=== PATIENT | male | born 1935 | race Hispanic/Latino ===

== ENCOUNTER 2016-08-03 14:14 | Inpatient (IN) | payer MEDICARE, OTHER ==
--- NOTE | 2016-08-03 14:46 | CT ---
PROCEDURE: CT HEAD WITHOUT CONTRAST. HISTORY: numbness; h/o TIA COMPARISON: Noncontrast head CT performed 05/05/14 TECHNIQUE: Axial computed tomography images were obtained through the head/brain without intravenous contrast. Radiation dose: Total exam DLP = 860.72 mGy-cm. This CT exam was performed using one or more of the following dose reduction techniques: Automated exposure control, adjustment of the mA and/or kV according to patient size, and/or use of iterative reconstruction technique. FINDINGS: HEMORRHAGE: No intracranial hemorrhage. BRAIN: Diffuse atrophy with prominence of the ventricles and sulci noted. No mass effect or edema. Moderate to severe scattered periventricular and subcortical white matter hypodensities, which are nonspecific, but often seen with chronic microvascular ischemic disease. Please note that MRI with diffusion imaging is more sensitive in the detection of acute ischemic event. VENTRICLES: No hydrocephalus. CALVARIUM: Unremarkable. PARANASAL SINUSES: Unremarkable as visualized. No significant inflammatory changes. MASTOID AIR CELLS: Unremarkable as visualized. No inflammatory changes. OTHER FINDINGS: None. IMPRESSION: Moderate to severe nonspecific white matter changes. Generalized atrophy. Please note that MRI with diffusion imaging is more sensitive in the detection of acute ischemic event. Findings discussed with Dr. Berkowitz on 08/03/16 at 2:42 p.m.
--- NOTE | 2016-08-03 14:50 | ED PDOC ---
HPI:STROKE - Time Time: 02:15 - Historian Historian: Patient (states that he felt numbness on both upper extremties while he was walking about. He reports having some difficulty in getting words out. He then proceeded to walk to the ER to have this checked out. There is no fever or chills. No vision problem.) - Chief Complaint Chief Complaint: Numbness - Onset Onset: Hours NIHSS Stroke Scale - How Severe is the Stroke Level of Consciousness: 0=Alert LOC to Questions: 0=Both comments correct LOC to commands: 0=Obeys both correctly Best Gaze: 0=Normal Visual: 0=No visual loss Facial: 0=Normal Motor Arm - Left: 0=No drift Motor Arm - Right: 0=No drift Motor Leg - Left: 0=No drift Motor Leg - Right: 0=No drift Limb Ataxia: 0=Absent Sensory: 0=Normal Best Language: 0=No aphasia Dysarthia: 0=Normal articulation Extinction & Inattention (Neglect): 0=Normal, no object Score: 0 rTPA Inclusion/Exclusion - Refusal of Treatment Patient Refused Treatment: No - Inclusion Criteria for Altepase Patient is 18 years or Older: Yes The Clinical Diagnosis of Ischemic Stroke That is Causing a Potentially Disabling Neurological Deficit: No Time of Onset is Well Established to be Less Than 270 Minute Before Treatment Would Begin: No Risk/Benefit Discussed With Patient/Family Member Present: Yes - Exclusion Criteria for Altepase Uncontrolled Hypertension at Time of Treatment (Systolic BP above 185 or Diastolic BP above 110 mmHg): No Active Internal Bleeding: No Known Bleeding Diathesis Including but Not Limited to: Platelets Below 100,000/ mm,PTT Above 40 sec After Heparin Use, Current Use of Oral Anitcoagulant With INR Greater Than 1.7 or PT Greater Than 15 secs: No Evidence of an Intracranial Hemorrhage: No Evidence of Major Acute Infarct With Signs Greater Than 1/3 MCA Territory: No Suspicion of Subarachnoid Hemorrhage on Pretreatment Evaluation Even if CT Head Negative For Hemorrhage: No - Warning to TPA With Conditions Following Conditions Weighed Against Anticipated Benefit: No Past Medical History Reviewed: Historical Data, Nursing Documentation, Vital Signs Vital Signs: Last Vital Signs Temp 98.8 F 08/03/16 14:16 Pulse 75 08/03/16 14:16 Resp 16 08/03/16 14:16 BP 133/92 H 08/03/16 14:16 Pulse Ox 98 08/03/16 14:16 - Medical History PMH: CAD, HTN, Hypercholesterolemia, TIA - Surgical History Surgical History: CABG - Family History Family History: States: No Known Family Hx - Living Arrangements Living Arrangements: With Family - Home Medications Home Medications: Ambulatory Orders Medication Instructions Recorded Aspirin [Aspirin EC] 81 mg PO DAILY 04/30/14 Metoprolol Succinate 100 mg PO DAILY 04/30/14 Simvastatin [Zocor] 20 mg PO DAILY 08/03/16 Sulfamethoxazole/Trimethoprim 1 tab PO BID 08/03/16 [Bactrim DS Tab] Tamsulosin [Flomax] 0.4 mg PO DAILY 08/03/16 traMADol [Ultram] 50 mg PO Q6H PRN 08/03/16 - Allergies Allergies/Adverse Reactions: Allergies Allergy/AdvReac Type Severity Reaction Status Date / Time No Known Allergies Allergy Verified 08/03/16 14:16 Review of Systems ROS Statement: Except As Marked, All Systems Reviewed And Found Negative Neurological: Positive for: Numbness (both upper extremities, resolved) Physical Exam - Reviewed Nursing Documentation Reviewed: Yes Vital Signs Reviewed: Yes - Physical Exam Appears: Positive for: Well, Non-toxic, No Acute Distress Head Exam: Positive for: ATRAUMATIC, NORMAL INSPECTION, NORMOCEPHALIC Skin: Positive for: Normal Color, Warm, DRY Eye Exam: Positive for: EOMI, Normal appearance, PERRL ENT: Positive for: Normal ENT Inspection Neck: Positive for: Normal, Painless ROM Cardiovascular/Chest: Positive for: Regular Rate, Rhythm Respiratory: Positive for: CNT, Normal Breath Sounds Gastrointestinal/Abdominal: Positive for: Normal Exam, Bowel Sounds, Soft Back: Positive for: Normal Inspection Extremity: Positive for: Normal ROM Neurologic/Psych: Positive for: Alert, Oriented - Laboratory Results Result Diagrams: 08/03/16 14:36 08/03/16 14:36 - ECG O2 Sat by Pulse Oximetry: 98 Disposition - Clinical Impression Clinical Impression: TIA (transient ischemic attack) - Patient ED Disposition Is Patient to be Admitted: Yes Doctor Will See Patient In The: Hospital - Disposition Disposition: Transfer of Care Disposition Time: 16:15 Condition: GUARDED - Pt Status Changed To: Hospital Disposition Of: Observation - POA Present On Arrival: None
[2016-08-03 14:52] LABS: BASO # 0.1 K/uL (0.0-0.2); BASO % 1.3 % (0.0-2.0); EOS # 0.2 K/uL (0.0-0.7); EOS % 2.7 % (0.0-4.0); HEMATOCRIT 40.3 % (35.0-51.0); LYMPH # 2.2 K/uL (1.0-4.3); LYMPH % 29.7 % (20.0-40.0); MEAN CELL VOLUME 96.5 fl (80.0-94.0); MEAN CORPUSCULAR HEMOGLOBIN 32.7 pg (27.0-31.0); MEAN CORPUSCULAR HGB CONC 33.8 g/dL (33.0-37.0); MEAN PLATELET VOLUME 8.6 fl (7.2-11.7); MONO # 0.6 K/uL (0.0-0.8); MONO % 8.5 % (0.0-10.0); NEUT # 4.3 K/uL (1.8-7.0); NEUT % 57.8 % (50.0-75.0); NRBC % 0.1 % (0.0-0.0); RED CELL DISTRIBUTION WIDTH 13.1 % (11.5-14.5); WHITE BLOOD COUNT 7.5 K/uL (4.8-10.8)
[2016-08-03 14:56] LABS: ALB/GLOB RATIO 1.6 (1.0-2.1); ALKALINE PHOSPHATASE 52 U/L (38-126); ALT/SGPT 37 U/L (21-72); AST/SGOT 35 U/L (17-59); BILIRUBIN,TOTAL 0.5 mg/dl (0.2-1.3); BLOOD UREA NITROGEN 22 mg/dl (9-20); CALCIUM 9.5 mg/dL (8.4-10.2); CARBON DIOXIDE 26 mmol/L (22-30); CHLORIDE 100 mmol/L (98-107); CHOLESTEROL 122 mg/dL (0-199); GFR AFRICAN-AMERICAN > 60; GLUCOSE,RANDOM 109 mg/dL (75-110); POTASSIUM 3.9 MMOL/L (3.6-5.0); SODIUM 138 mmol/l (132-148); TOTAL PROTEIN 7.6 G/DL (6.3-8.2)
[2016-08-03 15:04] LABS: PARTIAL THROMBOPLASTIN TIME 28.8 Seconds (25.6-37.1)
--- NOTE | 2016-08-03 15:05 | RAD ---
HISTORY: acute numbness COMPARISON: Chest x-ray performed 04/30/14 TECHNIQUE: Chest, one view. FINDINGS: LUNGS: Biapical pleural thickening. No focal consolidation. Please note that chest x-ray has limited sensitivity for the detection of pulmonary masses. PLEURA: No significant pleural effusion identified. No definite pneumothorax . CARDIOVASCULAR: Median sternotomy wires with evidence of CABG. Heart size appears within normal limits. OSSEOUS STRUCTURES: Osseous demineralization. Degenerative changes. VISUALIZED UPPER ABDOMEN: Unremarkable. OTHER FINDINGS: None. IMPRESSION: No acute findings. See above.
--- NOTE | 2016-08-03 17:41 | CARD ---
APPROVED REPORT EKG Measurement Heart [id number] <Conclusion> Sinus rhythm with occasional premature ventricular complexes Right bundle branch block Possible Lateral infarct, age undetermined Inferior infarct, age undetermined Abnormal ECG
--- NOTE | 2016-08-03 20:07 | CP.PCM.HP ---
History of Present Illness - History of Present Illness History of Present Illness: CC/HPI: Pt. present to emergency room by walking from home unassisted. Pt. reports that "just wasn't feeling right." Pt. reports felt weak in his right arm and felt like he was slurring his speech when being triaged in the emergency room. Pt. states he takes all of his medications regularly but did not take his Aspirin 81mg this morning. Pt. reports that weakness and lurring of his speech improved shortly after being in the emergency room. Pt. at this time with no complaints and reports he feels better. ROS: Pt. denies headache, lightheadedness, chest pain, dyspnea, fever, chills, nausea, vomiting, dysuria, hematuria, flank pain, or limb pain. PMHx: HTN, HLD, CAD, Arthritis, BPH PSHx: Quadruple Bypass, RT. knee Arthroplasty SMHx: Denies TOB, ETOH, DRUGS FMHx: Not contributory Allergies: NKDA Home Meds: See med list PMD: Dr. Mohr Present on Admission - Present on Admission Any Indicators Present on Admission: No History of DVT/PE: No History of Uncontrolled Diabetes: No Urinary Catheter: No Decubitus Ulcer Present: No Review of Systems - Review of Systems Review of Systems: See HPI Past Patient History - Past Medical History & Family History Past Medical History?: Yes - Past Social History Smoking Status: Never Smoked - CARDIAC Hx Hypercholesterolemia: Yes Hx Hypertension: Yes - NEUROLOGICAL Hx Transient Ischemic Attacks (TIA): Yes - INTEGUMENTARY Other/Comment: Recent biopsy of growth on forehead, no results as of yet. - MUSCULOSKELETAL/RHEUMATOLOGICAL Hx Falls: No - PSYCHIATRIC Hx Substance Use: No - SURGICAL HISTORY Hx Coronary Artery Bypass Graft: Yes - ANESTHESIA Hx Anesthesia: Yes Hx Anesthesia Reactions: No Meds Allergies/Adverse Reactions: Allergies Allergy/AdvReac Type Severity Reaction Status Date / Time No Known Allergies Allergy Verified 08/03/16 14:16 Physical Exam - Constitutional Appears: Non-toxic, No Acute Distress - Head Exam Head Exam: ATRAUMATIC, NORMOCEPHALIC - Eye Exam Eye Exam: Normal appearance, PERRL - Neck Exam Neck exam: Positive for: Full Rom. Negative for: Thyromegaly - Respiratory Exam Respiratory Exam: Clear to Auscultation Bilateral, NORMAL BREATHING PATTERN - Cardiovascular Exam Cardiovascular Exam: REGULAR RHYTHM, +S1, +S2 - GI/Abdominal Exam GI & Abdominal Exam: Soft. absent: Tenderness - Extremities Exam Extremities exam: Positive for: normal capillary refill, pedal pulses present. Negative for: calf tenderness - Neurological Exam Neurological exam: Alert, CN II-XII Intact, Oriented x3 Additional comments: Speech normal, Strength 5/5 bilateral upper and lower extremities - Skin Additional comments: + Port Wine Stain on back and chest present since Results - Vital Signs Recent Vital Signs: Last Vital Signs Temp 98.4 F 08/03/16 18:41 Pulse 60 08/03/16 18:41 Resp 19 08/03/16 18:41 BP 134/71 08/03/16 18:41 Pulse Ox 98 08/03/16 18:41 - Labs Result Diagrams: 08/03/16 14:36 08/03/16 14:36 Assessment & Plan - Assessment and Plan (Free Text) Assessment: 81 y.o. male with hx of CAD and TIA admitted for evaluation for TIA after Code Stroke called in the emergency room TIA/Code Stroke 1- CT Head- No acute changes 2- c/w Statin 3- Start Lovenox 4- Start Plavix 4- c/w Metoprolol 5- Neurology Dr. Forman Consulted- Inpurt appreciated 6- Swallow evaluation 7- PT evaluation 8- Consider Echocardiogram 9- Repeat Lipid Panel and HbA1c in the a.m. UTI- present since admission Taking Bactrim at home for 2 days Pt. currently asymptomatic and afebrile 1- Urinalysis 2- Continue Bactrim Diet 1- Heart Healthy DVT prophylaxis 1- Lovenox 40mg sc
[2016-08-03] MEDS: Tmp-Smz 800 mg-160 mg DS Tab PO SCH (23:00)
[2016-08-04 08:32] LABS: CHOLESTEROL 121 mg/dL (0-199)
[2016-08-04] MEDS ORDERED: Tmp-Smz 800 mg-160 mg DS Tab PO SCH (09:00)
--- NOTE | 2016-08-04 09:51 | CON ---
DATE: 08/04/2016 ATTENDING PHYSICIAN: Nayan Salomon MD. The patient is in room 401, bed 2. REASON FOR CONSULTATION: Transient ischemic attack. CHIEF COMPLAINT: The patient was walked into the hospital with a history of did not feel good with s lurred speech being witnessed in the Emergency Room. From neurological point of view, I was called i n to evaluate him for further management. HISTORY OF PRESENT ILLNESS: The patient is an 81-year-old right-handed male yesterday afte radha, he himself up suddenly felt things are not alright. He was debating with himself to go, not g o to the hospital. Finally decided to come to the hospital because hospital him closer to him. In the Emergency Room, he was found to have inability to bring out the words. This lasted for about an hour. This episode not associating with visual or bulbar dysfunction. No focal weakness. No neck p ain. No history of back pain. No history of fall, no history of involuntary movements, no history o f loss of consciousness. History of a TIA a year ago, been admitted and worked up in the hospital. He also admitting that he did take aspirin yesterday because it ran out. PAST MEDICAL HISTORY: Hypertension, dyslipidemia, TIA, arthritis. PERSONAL HISTORY: Denies smoking or alcohol use. REVIEW OF SYSTEMS: As per H and P. MEDICATIONS: Ultram, Flomax, Bactrim, Zocor, aspirin, and metoprolol. PHYSICAL EXAMINATION: VITAL SIGNS: Blood pressure 99/56, mean arterial pressure of 70, respiratory rate 16, temperature 98 .1, pulse rate is 64. NECK: Supple. No carotid bruit. HEART: Sounds are regular. CHEST: Fair air entry. EXTREMITIES: No edema in legs. NEUROLOGICAL EXAMINATION: MENTAL STATUS EXAMINATION: He is awake, alert, oriented to person, place, and time. Speech is clear . Naming, repetition, fluency, comprehension all within normal. CRANIAL NERVE EXAMINATION: Visual field intact. Pupil reactive to light. Extraocular movements are normal. No nystagmus, no facial sensory deficit, no facial asymmetry. Hearing seems to be intact. MOTOR EXAMINATION: Outstretched hands with eyes closed, no tremor, no weakness, no drift noted. M uscle strength is equal in all 4 extremities. DEEP TENDON REFLEXES: Biceps, brachioradialis, triceps absent, left knee 2+, right knee absent, both ankles are absent. Plantars flexion on the right side; left side was withdrawal response. The righ t leg seems to be an externally rotated to compare with the left side. COORDINATION: Mwplhy-meyy-fslfol test is intact. GAIT: Antalgic gait secondary to the arthritis. He is bowing his knees on both sides. No hemiparet ic gait is noted. CONCLUSION: Upon reviewing his history and neurological examination, the patient has been presenting with possible disorientation, inability to bring out the words, all consistent with possible posteri or cerebral artery ischemic process involving thalamic region. The current examination does not show any lateralizing sign except right leg seems to be externally rotated, that could be from focal path ology. WORKUP: CT of the brain showed diffuse atrophy without any focal ischemic process. LABORATORY DATA: WBC 7.5, hemoglobin 13.6, hematocrit 40.3, platelets 175. PT 12.4, INR 1.1, Aptt 2 8.8. Sodium 138, potassium 3.9, chloride 100, bicarbonate 26, BUN 22, creatinine 1.3, GFR more than 60, glucose 137. Cholesterol 122. LDL 74, triglycerides 184, HDL 27. EKG: Right bundle branch block with lateral wall ischemic process. RECOMMENDATIONS: 1. MRI of the brain to rule out any acute process. 2. Carotid Doppler to rule out stenosis. 3. Echocardiogram to rule out cardioembolic phenomenon. 4. The patient failed with aspirin. I would like to put him back on clopidogrel 75 mg. 5. The patient seems to be low mean arterial pressure as well as bradycardia. I would consider him to be switched to angiotensin receptor franchesca with fenofibrate for triglyceridemia. The patient should get out of the bed and physical therapy should be entertained. If he is stable for the next 12 hour period, the patient can be discharged and should have followup v isit with me as outpatient. Juvencio Forman MD cc: [id number] TT: 08/04/2016 09:50:56 Confirmation # [id number] Dictation # [id number] paul
[2016-08-04] MEDS: Tmp-Smz 800 mg-160 mg DS Tab PO SCH ×2 (10:18→18:34)
[2016-08-04] MEDS: Enoxaparin 40 mg Syringe SC SCH (10:19)
[2016-08-04] MEDS: Metoprolol Succinate 100 mg XL Tab PO SCH (10:19)
--- NOTE | 2016-08-04 11:14 | MRI ---
PROCEDURE: MRI BRAIN WITHOUT CONTRAST HISTORY: stroke COMPARISON: Comparison made with CT scan of the brain 08/03/2016 TECHNIQUE: Multiplanar, multisequence MR images of the brain were obtained without intravenous contrast enhancement. FINDINGS: HEMORRHAGE: No acute parenchymal, subarachnoid or extra-axial hemorrhage. No evidence of hemosiderin deposition seen on gradient echo weighted sequence. DWI: No evidence of an acute or early subacute infarction identified on diffusion imaging. BRAIN PARENCHYMA: Extensive and significant diffuse/ confluent chronic white matter ischemic changes again seen extending peripherally into the deep and subcortical white matter both cerebral hemispheres. Multiple more discrete chronic appearing infarct changes seen scattered throughout the deep and subcortical white matter, braswell radiata basal nuclei and to a lesser degree brainstem. . In addition, there are multiple on more discrete round and elliptical shaped focal areas of CSF signal scattered about the deep and subcortical white matter as well as coronal radiata possibly representing dilated perivascular spaces. Moderate generalized volume loss VENTRICLES: No evidence of obstructive hydrocephalus. CRANIUM: No gross calvarial abnormality seen. ORBITS: Orbits and contents are grossly unremarkable. . PARANASAL SINUSES/MASTOIDS: Minimal mucosal thickening seen within the maxillary antra as well as several ethmoid air cells. Partial opacification multiple left-sided mastoid air cells. VASCULAR SYSTEM: Visualized major vascular flow voids at skull base are patent. OTHER FINDINGS: None. IMPRESSION: No acute intracranial hemorrhage or infarct. A significant and extensive chronic white matter as well as basal nuclei and brainstem ischemic changes. Multiple too numerous to count dilated perivascular spaces are also present. Moderate generalized volume loss.
[2016-08-04 11:15] LABS: THYROID STIMULATING HORMONE 0.88 mIU/ML (0.46-4.68)
--- NOTE | 2016-08-04 13:36 | CARD ---
APPROVED REPORT EXAM: Two-dimensional and M-mode echocardiogram with Doppler and color Doppler. Other Information Quality : GoodRhythm : NSR INDICATION CVA/TIA 2D DIMENSIONS IVSd0.67 (0.7-1.1cm)LVDd4.81 (3.9-5.9cm) LVOT Diameter1.98 (1.8-2.4cm)PWd0.59 (0.7-1.1cm) IVSs0.95 (0.8-1.2cm)LVDs3.30 (2.5-4.0cm) FS (%) 31.4 %PWs0.98 (0.8-1.2cm) LVEF (%)55.0 (>50%) M-Mode DIMENSIONS Left Atrium (MM)4.44 (2.5-4.0cm)IVSd0.88 (0.7-1.1cm) Aortic Root3.24 (2.2-3.7cm)LVDd5.32 (4.0-5.6cm) Aortic Cusp Exc.1.53 (1.5-2.0cm)PWd0.76 (0.7-1.1cm) IVSs0.97 cmFS (%) 35 % LVDs3.47 (2.0-3.8cm)PWs1.03 cm Mitral Valve MV E Uscvfvyw96.2cm/sMV DECEL [id number] A Vcimyotl03.1cm/s MV ZCZ41kmS/A ratio0.9MVA (PHT)4.02cm2 TDI Lateral E' Peak V14.26cm/sMedial E' Peak V8.80cm/sE/Lateral E'4.8 E/Medial E'7.8 Pulmonary Valve PV Peak Luzyjuoo687.0cm/s Tricuspid Valve TR Peak Guzlazrr162ce/sRAP [id number] Peak Gr.21mmHg [id number] LEFT VENTRICLE The left ventricle is normal size. There is normal left ventricular wall thickness. The left ventricular ejection fraction is within the normal range. Hypokinetic basal septum Transmitral Doppler flow pattern is Grade I-abnormal relaxation pattern. RIGHT VENTRICLE The right ventricle is normal size. There is normal right ventricular wall thickness. The right ventricular systolic function is normal. ATRIA The left atrium is mildly dilated. The right atrium size is normal. AORTIC VALVE The aortic valve is mildly thickened. There is trace aortic regurgitation. There is no aortic valvular stenosis. MITRAL VALVE The mitral valve is mildly thickened. There is no mitral valve stenosis. Mitral regurgitation is mild. TRICUSPID VALVE The tricuspid valve is normal in structure There is mild tricuspid regurgitation. PULMONIC VALVE The pulmonary valve is normal in structure and function. There is no pulmonic valvular regurgitation. GREAT VESSELS The aortic root is normal in size. The IVC is normal in size and collapses >50% with inspiration. PERICARDIAL EFFUSION The pericardium appears normal. <Conclusion> The left ventricle is normal size. There is normal left ventricular wall thickness. The left ventricular ejection fraction is within the normal range. Hypokinetic basal septum Transmitral Doppler flow pattern is Grade I-abnormal relaxation pattern. Mitral regurgitation is mild.
--- NOTE | 2016-08-04 14:41 | CP.PCM.PN ---
Subjective - Date & Time of Evaluation Date of Evaluation: 08/04/16 Time of Evaluation: 09:30 - Subjective Subjective: Patient admitted for TIA, in which code stroke called. Neuro consulted with pending imaging (brain MRI, carotid ultrasound, echo,cervical spine MRI). Patient today has no complaints. States ambulating with no difficulty. Speech pressure and slurring has resolved as well as right arm weakness numbing and tingling. Patient denies headache, sob, chest pain, confusion, fever, chills, abdominal pain.Voiding with no difficulty. Patient tolerated PO intake. Son: Obdulio [phone] Objective - Vital Signs/Intake and Output Vital Signs (last 24 hours): Temp Pulse Resp BP Pulse Ox 98.0 F 65 20 112/59 L 98 08/04/16 12:53 08/04/16 12:53 08/04/16 12:53 08/04/16 12:53 08/04/16 12:53 - Medications Medications: Current Medications Atorvastatin Calcium (Lipitor) 10 mg PO DAILY [facility] Last Admin: 08/04/16 10:19 Dose: 10 mg Clopidogrel Bisulfate (Plavix) 75 mg PO DAILY [facility] Last Admin: 08/04/16 10:19 Dose: 75 mg Enoxaparin Sodium (Lovenox) 40 mg SC DAILY [facility] PRN Reason: Protocol Last Admin: 08/04/16 10:19 Dose: 40 mg Losartan Potassium (Cozaar) 25 mg PO DAILY [facility] Metoprolol Succinate (Toprol Xl) 100 mg PO DAILY [facility] Last Admin: 08/04/16 10:19 Dose: 100 mg Tramadol HCl (Ultram) 50 mg PO Q6H PRN PRN Reason: Pain, severe (8-10) Last Admin: 08/03/16 23:03 Dose: 50 mg Trimethoprim/Sulfamethoxazole (Bactrim Ds Tab) 1 tab PO BID [facility] Last Admin: 08/04/16 10:18 Dose: 1 tab - Labs Labs: PT 12.4 Seconds (9.8-13.1) 08/03/16 14:36 INR 1.1 (0.9-1.2) 08/03/16 14:36 APTT 28.8 Seconds (25.6-37.1) 08/03/16 14:36 - Constitutional Appears: Non-toxic, No Acute Distress - Head Exam Head Exam: ATRAUMATIC - Eye Exam Eye Exam: EOMI Pupil Exam: PERRL - ENT Exam ENT Exam: Mucous Membranes Dry - Neck Exam Neck Exam: Full ROM - Respiratory Exam Respiratory Exam: Clear to Ausculation Bilateral, NORMAL BREATHING PATTERN - Cardiovascular Exam Cardiovascular Exam: +S1, +S2 - GI/Abdominal Exam GI & Abdominal Exam: Soft, Normal Bowel Sounds. absent: Tenderness - Extremities Exam Extremities Exam: Full ROM, Normal Capillary Refill, Normal Inspection. absent : Calf Tenderness, Joint Swelling, Pedal Edema, Tenderness - Back Exam Back Exam: absent: CVA tenderness (L), CVA tenderness (R) - Neurological Exam Neurological Exam: Alert, Awake, CN II-XII Intact, Normal Gait, Oriented x3 Additional comments: Speech normal, Strength 5/5 bilateral upper and lower extremities - Skin Skin Exam: Dry, Intact, Normal Color Assessment and Plan - Assessment and Plan (Free Text) Assessment: 81 y.o. male with hx of CAD and TIA admitted for evaluation for TIA after Code Stroke called in the emergency room. TIA/Code Stroke 1- CT Head- No acute changes 2- c/w Statin 3- Start Lovenox 4- Start Plavix 4- c/w Metoprolol 5- Neurology Dr. Forman Consulted- with recommendations of brain MRI (no acute infarct or hemorrhage), cervical spine MRI (pending) echo (normal EF) 6- Swallow evaluation 7- PT evaluation 9- pending Repeat Lipid Panel and HbA1c in the a.m. -possible discharge tomorrow if all labs and PT clearance UTI- present since admission Taking Bactrim at home for 2 days Pt. currently asymptomatic and afebrile 1- Urinalysis 2- Continue Bactrim Diet 1- Heart Healthy DVT prophylaxis 1- Lovenox 40mg sc
[2016-08-04 15:55] VITALS: RESP 18
--- NOTE | 2016-08-04 19:04 | MRI ---
PROCEDURE: MRI cervical spine 2016. HISTORY: Cervical HNP COMPARISON: No prior TECHNIQUE: Multiecho multiplanar sequences were performed through the cervical spine without the use of intravenous contrast. FINDINGS: Current study reveals no acute compression fractures nor retropulsed fragments. Vertebral bodies exhibit relatively normal stature. There is mild straightening of the normal cervical lordosis. There is also very slight posterior subluxation of C4 over C5. Vertebral bodies and facets some otherwise exhibit normal alignment. Multilevel degenerative spondylosis. At the C6-C7 level, there is disc desiccation, disc space narrowing with central and bilateral disc herniation ridge complex contiguous with hypertrophic uncovertebral joints. The facet joints also mildly hypertrophic. There is resultant moderate canal narrowing and cord compression. . Exit foramina appear stenotic bilaterally. At the C5-C6 level, there is mild disc desiccation and posterior disc space narrowing. Small asymmetric disc ridge complex larger on the right than left and contiguous with mildly hypertrophic uncovertebral joints. Facet joints are also mildly hypertrophic. Central canal is minimally narrowed with no significant cord compression. The exit foramina are stenotic bilaterally. At the C4-C5 level, disc desiccation, disc space narrowing with cortical endplate irregularity. . Small broad-based disc bulge ridge complex also results in mild flattening of the ventral surface of the thecal sac and what appears represent some very minimal flattening of the ventral surface of the cord. Central canal is marginal to minimally narrowed. Uncovertebral facets are hypertrophic with bilateral foraminal stenosis. At the C3-C4 level, there is at mild age related disc desiccation. Disc space height maintained. Minimal central and bilateral disc bulge associate with a tiny annular fissure. The disc at minimally indents the ventral surface of the thecal sac and cord. Central canal appears marginal to adequate. Left facet is quite hypertrophic. Right facet is slightly overgrown. Minimal degenerative squaring of the uncovertebral joints. Left exit foramen is stenotic. Right exit foramen is adequate. No definitive intrinsic signal changes seen within the visualized spinal cord. Cervicomedullary junction unremarkable Impression: Multilevel degenerative spondylosis most notably affecting C6-C7 level where moderate size central and bilateral disc herniation results in moderate canal canal narrowing and cord compression. See above discussion for additional findings and details.
[2016-08-04 23:06] LABS: RBC URINE 2 /hpf (0-3); URINE BILIRUBIN NEGATIVE (NEGATIVE); URINE BLOOD NEGATIVE (NEGATIVE); URINE COLOR YELLOW (YELLOW); URINE GLUCOSE (UA) NEG (Normal); URINE KETONE NEGATIVE (NEGATIVE); URINE LEUKOCYTE ESTERASE NEG Leu/uL (Negative); URINE PROTEIN NEGATIVE (NEGATIVE); URINE UROBILINOGEN 0.2-1.0 mg/dL (0.2-1.0); WBC URINE < 1 /hpf (0-5)
[2016-08-05 00:03] VITALS: O2SAT 98
[2016-08-05 00:21] LABS: FOLATE > 20.0 ng/mL
[2016-08-05 08:45] VITALS: BP 109/63; TEMP 97.7
[2016-08-05] MEDS: Tmp-Smz 800 mg-160 mg DS Tab PO SCH (08:49)
[2016-08-05] MEDS: Enoxaparin 40 mg Syringe SC SCH ×2 (08:50→09:24)
[2016-08-05] MEDS: Metoprolol Succinate 100 mg XL Tab PO SCH (08:50)
[2016-08-05 08:52] VITALS: PULSE 64
--- NOTE | 2016-08-05 09:58 | CP.PCM.DIS ---
Provider - Provider Date of Admission: 08/03/16 16:26 Attending physician: Nayan Gallegos MD Primary care physician: Consults: Neuro: Dr. Forman Time Spent in preparation of Discharge (in minutes): 45 Diagnosis - Discharge Diagnosis (1) HTN (hypertension) Status: Acute (2) TIA (transient ischemic attack) Status: Acute (3) Radiculopathy affecting upper extremity Status: Acute Hospital Course - Lab Results Lab Results: Most Recent Lab Values WBC 7.5 K/uL (4.8-10.8) 08/03/16 14:36 RBC 4.17 Mil/uL (4.40-5.90) L 08/03/16 14:36 Hgb 13.6 g/dL (12.0-18.0) 08/03/16 14:36 Hct 40.3 % (35.0-51.0) 08/03/16 14:36 MCV 96.5 fl (80.0-94.0) H 08/03/16 14:36 MCH 32.7 pg (27.0-31.0) H 08/03/16 14:36 MCHC 33.8 g/dL (33.0-37.0) 08/03/16 14:36 RDW 13.1 % (11.5-14.5) 08/03/16 14:36 Plt Count 175 K/uL (130-400) 08/03/16 14:36 MPV 8.6 fl (7.2-11.7) 08/03/16 14:36 Neut % (Auto) 57.8 % (50.0-75.0) 08/03/16 14:36 Lymph % (Auto) 29.7 % (20.0-40.0) 08/03/16 14:36 [place] % (Auto) 8.5 % (0.0-10.0) 08/03/16 14:36 Eos % (Auto) 2.7 % (0.0-4.0) 08/03/16 14:36 Baso % (Auto) 1.3 % (0.0-2.0) 08/03/16 14:36 Neut # 4.3 K/uL (1.8-7.0) 08/03/16 14:36 Lymph # 2.2 K/uL (1.0-4.3) 08/03/16 14:36 [place] # 0.6 K/uL (0.0-0.8) 08/03/16 14:36 Eos # 0.2 K/uL (0.0-0.7) 08/03/16 14:36 Baso # 0.1 K/uL (0.0-0.2) 08/03/16 14:36 ESR 14 mm/hr (0-20) 08/04/16 10:00 PT 12.4 Seconds (9.8-13.1) 08/03/16 14:36 INR 1.1 (0.9-1.2) 08/03/16 14:36 APTT 28.8 Seconds (25.6-37.1) 08/03/16 14:36 Sodium 138 mmol/l (132-148) 08/03/16 14:36 Potassium 3.9 MMOL/L (3.6-5.0) 08/03/16 14:36 Chloride 100 mmol/L (98-107) 08/03/16 14:36 Carbon Dioxide 26 mmol/L (22-30) 08/03/16 14:36 Anion Gap 16 (10-20) 08/03/16 14:36 BUN 22 mg/dl (9-20) H 08/03/16 14:36 Creatinine 1.3 mg/dL (0.8-1.5) 08/03/16 14:36 Est GFR ( Amer) > 60 08/03/16 14:36 Est GFR (Non-Af Amer) 53 08/03/16 14:36 POC Glucose (mg/dL) 137 mg/dL (65-110) H 08/03/16 14:35 Random Glucose 109 mg/dL (75-110) 08/03/16 14:36 Hemoglobin A1c 5.6 % (4.2-6.5) 08/03/16 14:36 Calcium 9.5 mg/dL (8.4-10.2) 08/03/16 14:36 Total Bilirubin 0.5 mg/dl (0.2-1.3) 08/03/16 14:36 AST 35 U/L (17-59) 08/03/16 14:36 ALT 37 U/L (21-72) 08/03/16 14:36 Alkaline Phosphatase 52 U/L (38-126) 08/03/16 14:36 Troponin I < 0.0120 ng/mL (0.00-0.120) 08/03/16 14:36 C-React Prot High Sens < 0.10 mg/L (1.00-3.00) L 08/04/16 10:00 Total Protein 7.6 G/DL (6.3-8.2) 08/03/16 14:36 Albumin 4.7 g/dL (3.5-5.0) 08/03/16 14:36 Globulin 2.9 gm/dL (2.2-3.9) 08/03/16 14:36 Albumin/Globulin Ratio 1.6 (1.0-2.1) 08/03/16 14:36 Triglycerides 63 mg/DL (0-149) D 08/04/16 06:00 Cholesterol 121 mg/dL (0-199) 08/04/16 06:00 LDL Cholesterol Direct 81 mg/dL (0-129) 08/04/16 06:00 HDL Cholesterol 29 MG/DL (30-70) L 08/04/16 06:00 Vitamin B12 267 pg/mL (239-931) 08/04/16 10:00 Folate > 20.0 ng/mL 08/04/16 10:00 TSH 3rd Generation 0.88 mIU/ML (0.46-4.68) 08/04/16 10:00 Urine Color Yellow (YELLOW) 08/04/16 22:59 Urine Clarity Clear (Clear) 08/04/16 22:59 Urine pH 6.0 (5.0-8.0) 08/04/16 22:59 Ur Specific [place] 1.010 (1.003-1.030) 08/04/16 22:59 Urine Protein Negative mg/dL (NEGATIVE) 08/04/16 22:59 Urine Glucose (UA) Neg mg/dL (Normal) 08/04/16 22:59 Urine Ketones Negative mg/dL (NEGATIVE) 08/04/16 22:59 Urine Blood Negative (NEGATIVE) 08/04/16 22:59 Urine Nitrate Negative (NEGATIVE) 08/04/16 22:59 Urine Bilirubin Negative (NEGATIVE) 08/04/16 22:59 Urine Urobilinogen 0.2-1.0 mg/dL (0.2-1.0) 08/04/16 22:59 Ur Leukocyte Esterase Neg Rama/uL (Negative) 08/04/16 22:59 Urine RBC (Auto) 2 /hpf (0-3) 08/04/16 22:59 Urine Microscopic WBC < 1 /hpf (0-5) 08/04/16 22:59 Blood Type O POSITIVE 08/03/16 14:36 Antibody Screen Negative 08/03/16 14:36 BBK History Checked No verified bt 08/03/16 14:36 - Hospital Course Hospital Course: Pt. present to emergency room by walking from home unassisted. Pt. reports that "just wasn't feeling right." Pt. reports felt weak in his right arm and felt like he was slurring his speech when being triaged in the emergency room. Pt. states he takes all of his medications regularly but did not take his Aspirin 81mg this morning. Pt. reports that weakness and slurring of his speech improved shortly after being in the emergency room. Patient's symptoms resolved in ER. in ED, CT Head- No acute changes, c/w Statin,Lovenox, Metoprolol, PT eval. Patient passed swallow eval. Dr. Forman consulted with recommendations of brain MRI ( negative for acute findings), echo was normal. Cervical spine showed degenerative changes. Patient was started on Plavix and Cozaar by angie with clearance for discharge. Patient on discharge had no acute complaints. Stated he wanted to go home. No complaints of headache, confusion, extremity weakness, slurring or pressured speech. Patient stable on discharge. Home medications on discharge: Cozaar 50 mg daily Plavix 75 mg daily Metoprolol Succinate 100 mg daily \\ Lipitor 10 mg Discharge Exam - Head Exam Head Exam: ATRAUMATIC - Eye Exam Eye Exam: EOMI Pupil Exam: PERRL - ENT Exam ENT Exam: Mucous Membranes Moist - Neck Exam Neck exam: Full Rom - Respiratory Exam Respiratory Exam: Clear to PA & Lateral, NORMAL BREATHING PATTERN, UNREMARKABLE - Cardiovascular Exam Cardiovascular Exam: REGULAR RHYTHM, +S1, +S2 - Extremities Exam Extremities exam: full ROM, normal inspection, pedal pulses present - Back Exam Back exam: absent: CVA tenderness (L), CVA tenderness (R) - Neurological Exam Neurological exam: Alert, CN II-XII Intact, Normal Gait, Oriented x3 - Psychiatric Exam Psychiatric exam: Normal Affect, Normal Mood - Skin Skin Exam: Dry, Intact, Normal Color, Warm Discharge Plan - Discharge Medications Prescriptions: Clopidogrel [Plavix] 75 mg PO DAILY #30 tab Losartan [Cozaar] 25 mg PO DAILY #30 tab - Follow Up Plan Condition: GUARDED Disposition: HOME/ ROUTINE Instructions: Transient Ischemic Attack (DC) Additional Instructions: Patient to follow up with PMD in 1 week Patient to take medication as directed Discontinue ASA Follow up with neurology in 1-2 weeks Return to ED if symptoms worsen or regress Referrals: Juvencio Forman MD [Medical Doctor] - Nayan Gallegos MD [Family Provider] -
--- NOTE | 2016-08-05 15:33 | US ---
PROCEDURE: Duplex ultrasound of the carotid and vertebral arteries. HISTORY: assess stenosis COMPARISON: None available. TECHNIQUE: Grayscale and duplex Doppler evaluation of the cervical carotid and vertebral arteries were performed. The common carotid, carotid bifurcations and cervical ICA and proximal ECA were evaluated. The vertebral arteries were evaluated for gross patency and direction. FINDINGS: RIGHT CAROTID ARTERIES: There is minor intimal thickening seen in the common carotid artery with mild plaque in the carotid bifurcation extending into right internal carotid artery. Maximal right ICA velocity = 102.3 cm/S. Maximal right CCA velocity = 122.0 cm/S ICA/CCA ratio = 1.0 LEFT CAROTID ARTERIES: Mild atherosclerotic plaque seen within the proximal and distal left common carotid artery extending into the bifurcation and proximal left internal carotid artery. Maximal left ICA velocity = 92.5 cm/S Maximal left CCA velocity = 162.2 cm/S ICA/CCA ratio = 0.8 VERTEBRAL ARTERIES: Right Vertebral Artery: Patent. Antegrade flow. Left Vertebral Artery: Patent. Antegrade flow. OTHER FINDINGS: None. IMPRESSION: Mild atherosclerotic plaque changes are seen within both carotid circulations as described. . Based on peak velocity measurements in the internal carotid arteries, findings suggest between 1 and 39 % diameter stenosis bilaterally.
== END 2016-08-05 12:45 | disposition home or self-care (01) | DRG 69 ==
LOC: H.ER 14:14 → OBSVTOIN 16:26 → H.ERHOLD 16:26 → H.TEL 18:14
PROVIDERS: ADMIT Family Medicine; ATTEND Family Medicine
DX: G45.9 Transient cerebral ischemic attack, unspecified (principal); N39.0 Urinary tract infection, site not specified; Z95.1 Presence of aortocoronary bypass graft; I10 Essential (primary) hypertension; E78.5 Hyperlipidemia, unspecified; I25.10 Atherosclerotic heart disease of native coronary artery without angina pectoris; E78.00 Pure hypercholesterolemia, unspecified; M54.10 Radiculopathy, site unspecified; N40.0 Benign prostatic hyperplasia without lower urinary tract symptoms; M19.90 Unspecified osteoarthritis, unspecified site; Z79.02 Long term (current) use of antithrombotics/antiplatelets; Z79.82 Long term (current) use of aspirin; Z86.73 Personal history of transient ischemic attack (TIA), and cerebral infarction without residual deficits

== ENCOUNTER 2017-01-22 13:43 | Inpatient (IN) | payer MEDICARE, OTHER ==
[2017-01-22 13:44] VITALS: BMI 22.8
--- NOTE | 2017-01-22 14:30 | ED PDOC ---
HPI: Abdomen Time Seen by Provider: 01/22/17 14:14 Chief Complaint (Nursing): GI Problem Chief Complaint (Provider): nausea History Per: Patient History/Exam Limitations: no limitations Onset/Duration Of Symptoms: Hrs (4), Gradual Outside of [place] travel?: No Current Symptoms Are (Timing): Still Present Context: Food Location Of Pain/Discomfort: Diffuse Quality Of Discomfort: Cramping Associated Symptoms: Nausea, Other (++ BMs). denies: Vomiting, Diarrhea Alleviating Factors: None Last Bowel Movement: Today Additional Complaint(s): 81yo male arrives c.o nausea and mild abdominal discomfort, c/o "not feeling right" which started while attending a this morning. Also notes feeling a chill, fatigued and mildly dizzy. Symptoms similar to prior when diagnosed with colitis requiring hospitalization. Denies melena, BRBPR or hemetemesis. States scheduled for colonoscopy this saturday by Dr Ravi. Started a new medication from neuro Dr Forman this morning Mohinder, for early dementia. Past Medical History Reviewed: Historical Data, Nursing Documentation, Vital Signs Vital Signs: Last Vital Signs Temp 98.1 F 01/22/17 20:57 Pulse 64 01/22/17 20:57 Resp 18 01/22/17 20:57 BP 104/55 L 01/22/17 20:57 Pulse Ox 97 01/22/17 21:01 - Medical History PMH: CAD, HTN, Hypercholesterolemia, TIA Denies: HIV, Chronic Kidney Disease - Surgical History Surgical History: CABG (X4) - Family History Family History: States: Unknown Family Hx - Living Arrangements Living Arrangements: With Family - Social History Current smoker - smoking cessation education provided: No - Home Medications Home Medications: Ambulatory Orders Medication Instructions Recorded Metoprolol Succinate 100 mg PO DAILY 04/30/14 Tamsulosin [Flomax] 0.4 mg PO DAILY 08/03/16 traMADol [Ultram] 50 mg PO Q8H PRN 08/03/16 Atorvastatin [Lipitor] 10 mg PO DAILY tab 08/05/16 Clopidogrel [Plavix] 75 mg PO DAILY #30 tab 08/05/16 Losartan [Cozaar] 25 mg PO DAILY #30 tab 08/05/16 Ciprofloxacin [Cipro] 500 mg PO Q12H 12/13/16 Cyanocobalamin [Vitamin B12 1000 1,000 mcg PO DAILY 12/13/16 mcg Tab] Lactobacillus Combination No.8 1 cap PO DAILY 12/13/16 [Adult Probiotic] metroNIDAZOLE [Flagyl] 500 mg PO Q8H 12/13/16 - Allergies Allergies/Adverse Reactions: Allergies Allergy/AdvReac Type Severity Reaction Status Date / Time No Known Allergies Allergy Verified 12/13/16 12:21 Review of Systems ROS Statement: Except As Marked, All Systems Reviewed And Found Negative Constitutional: Positive for: Chills, Weakness, Malaise Eyes: Negative for: Pain ENT: Negative for: Ear Pain, Nose Discharge Cardiovascular: Negative for: Chest Pain, Orthopnea Respiratory: Negative for: Cough, Shortness of Breath Gastrointestinal: Positive for: Nausea, Abdominal Pain. Negative for: Vomiting , Diarrhea, Constipation, Melena, Hematochezia, Hematemesis, Rectal Pain Genitourinary Male: Negative for: Dysuria Musculoskeletal: Negative for: Neck Pain, Shoulder Pain, Leg Pain Skin: Negative for: Rash, Lesions Neurological: Negative for: Weakness, Numbness, Headache, Dizziness Psych: Negative for: Anxiety Physical Exam - Reviewed Nursing Documentation Reviewed: Yes Vital Signs Reviewed: Yes - Physical Exam Appears: Positive for: Well, Non-toxic, No Acute Distress Head Exam: Positive for: ATRAUMATIC, NORMAL INSPECTION, NORMOCEPHALIC Skin: Positive for: Normal Color, Warm, DRY Eye Exam: Positive for: EOMI, Normal appearance, PERRL ENT: Positive for: Normal ENT Inspection Neck: Positive for: Normal, Painless ROM Cardiovascular/Chest: Positive for: Regular Rate, Rhythm Respiratory: Positive for: CNT, Normal Breath Sounds Gastrointestinal/Abdominal: Positive for: Bowel Sounds, Soft. Negative for: Tenderness, Guarding, Rebound Back: Positive for: Normal Inspection Extremity: Positive for: Normal ROM. Negative for: Deformity, Swelling Neurologic/Psych: Positive for: Alert, Oriented. Negative for: Motor/Sensory Deficits - Laboratory Results Result Diagrams: 01/22/17 15:20 01/22/17 15:20 - ECG O2 Sat by Pulse Oximetry: 97 Medical Decision Making Medical Decision Making: workup for abd pain initiated labs, CT, IVF, antiemetic ordered FINDINGS: Lower thorax: Heart size is normal. There are coronary artery calcifications. There is a hiatal hernia. ABDOMEN: Liver: There is fatty infiltration of the liver. Gallbladder and bile ducts: unremarkable Pancreas: Pancreas is mildly atrophic. Spleen: unremarkable Adrenals: unremarkable Kidneys and ureters: There are multiple left renal cysts. There are low- attenuation right renal lesions too small to characterize.There is no pelvocaliectasis or ureterectasis. Stomach and bowel: Stomach is partially distended. There is a small duodenal diverticulum. Rotation is normal. There is no small bowel obstruction. Appendix is absent. Terminal ileum is unremarkable. The colon is interposed between the liver and the abdominal wall. There is moderate stool in the colon. There is extensive sigmoid diverticulosis. There has been slight decrease in PRINCESS REINOSO | Final Radiology Report CONFIDENTIALITY STATEMENT This report is intended only for use by the referring physician, and only in accordance with law. If you received this in error, call [phone]. Page 2 of 2 sigmoid wall thickening and enhancement compared to the prior study. There continues to be wall thickening and enhancement of the sigmoid and rectum. Appendix: See stomach and bowel PELVIS: Bladder: unremarkable Reproductive: The prostate is enlarged.Seminal vesicles have the expected configuration. ABDOMEN and PELVIS: Intraperitoneal space: There is trace fluid in the left lower quadrant.There is no free air. Bones/joints: There are postsurgical changes of median sternotomy Bony structures are osteopenic with degenerative change. Soft tissues: There is a moderately large left inguinal hernia containing fat. There is a small fat containing umbilical hernia. There are surgical clips in the left inguinal region. Vasculature: There are vascular calcifications. Lymph nodes: There is no pathologic adenopathy. IMPRESSION: Extensive sigmoid diverticulosis, continued sigmoid and rectal wall thickening and inflammation suggesting colitis/proctitis, no abscess or free air; fatty liver, no acute solid visceral abnormality D/w Dr Enriquez covering GI Dr Ravi, given elev WBC, recurrence of colitis, age will require inpatient eval and possible scope here. Disposition - Disposition Forms: [employer] (Japanese)
[2017-01-22 15:35] LABS: BASO # 0.1 K/uL (0.0-0.2); BASO % 0.5 % (0.0-2.0); EOS % 0.3 % (0.0-4.0); HEMATOCRIT 39.3 % (35.0-51.0); LYMPH % 7.8 % (20.0-40.0); MEAN CELL VOLUME 98.8 fl (80.0-94.0); MEAN CORPUSCULAR HEMOGLOBIN 32.4 pg (27.0-31.0); MEAN CORPUSCULAR HGB CONC 32.8 g/dL (33.0-37.0); MEAN PLATELET VOLUME 8.5 fl (7.2-11.7); MONO # 0.5 K/uL (0.0-0.8); MONO % 3.8 % (0.0-10.0); NEUT # 10.7 K/uL (1.8-7.0); NEUT % 87.6 % (50.0-75.0); PLATELET COUNT 166 K/uL (130-400); RED CELL DISTRIBUTION WIDTH 14.1 % (11.5-14.5); WHITE BLOOD COUNT 12.3 K/uL (4.8-10.8)
[2017-01-22 16:02] LABS: ALB/GLOB RATIO 1.4 (1.0-2.1); ALKALINE PHOSPHATASE 52 U/L (38-126); ALT/SGPT 35 U/L (21-72); AST/SGOT 27 U/L (17-59); BILIRUBIN,TOTAL 0.6 mg/dl (0.2-1.3); BLOOD UREA NITROGEN 19 mg/dl (9-20); CARBON DIOXIDE 28 mmol/L (22-30); CHLORIDE 103 mmol/L (98-107); GFR AFRICAN-AMERICAN > 60; GLUCOSE,RANDOM 108 mg/dL (75-110); LIPASE 804 U/L (23-300); POTASSIUM 3.7 MMOL/L (3.6-5.0); SODIUM 139 mmol/l (132-148); TOTAL PROTEIN 7.1 G/DL (6.3-8.2)
[2017-01-22 16:07] LABS: NEUTROPHIL 86 % (42-75); TOTAL CELLS COUNTED 100
[2017-01-22 16:15] LABS: VENOUS BLOOD GAS BASE EXCESS 1.9 mmol/L (0.0-2.0); VENOUS BLOOD GAS PCO2 50 mmHg (40-60); VENOUS BLOOD PH 7.36 (7.32-7.43)
[2017-01-22] MEDS ORDERED: Iohexol 240 (50 ml) PO ONE (16:32)
[2017-01-22 16:51] LABS: RBC URINE 2 /hpf (0-3); URINE BACTERIA RARE (<OCC); URINE BILIRUBIN NEGATIVE (NEGATIVE); URINE BLOOD NEGATIVE (NEGATIVE); URINE COLOR YELLOW (YELLOW); URINE GLUCOSE (UA) NEG (Normal); URINE KETONE TRACE mg/dL (NEGATIVE); URINE LEUKOCYTE ESTERASE NEG Leu/uL (Negative); URINE PROTEIN NEGATIVE (NEGATIVE); URINE UROBILINOGEN 0.2-1.0 mg/dL (0.2-1.0); WBC URINE 2 /hpf (0-5)
[2017-01-22 16:58] LABS: PARTIAL THROMBOPLASTIN TIME 26.1 Seconds (25.6-37.1)
--- NOTE | 2017-01-22 17:26 | RAD ---
HISTORY: chest pain/ r/o infiltrate COMPARISON: 08/03/2016 TECHNIQUE: Chest PA and lateral FINDINGS: LUNGS: No active pulmonary disease. PLEURA: No significant pleural effusion identified. No pneumothorax apparent. CARDIOVASCULAR: No radiographic findings to suggest acute or significant cardiovascular disease. Incidental Finding(s): Postoperative changes related to sternotomy. OSSEOUS STRUCTURES: No significant abnormalities. VISUALIZED UPPER ABDOMEN: Normal. OTHER FINDINGS: None. IMPRESSION: No active disease. No significant interval change compared to the prior examination(s). Concordant results with the preliminary interpretation rendered by the emergency department physician procedure.
[2017-01-22] MEDS ORDERED: Iohexol 300 100 ML IJ ONE (19:13)
--- NOTE | 2017-01-22 20:50 | CT ---
EXAM: CT Abdomen and Pelvis With Intravenous Contrast EXAM DATE/TIME: 01/22/2017 4:32 PM CLINICAL HISTORY: 81 years old, male; Pain; Abdominal pain; Generalized; Prior surgery; Surgery date: 6+ months; Surgery type: Appendectomy; Additional info: Abdominal pain, HX colitis TECHNIQUE: Axial computed tomography images of the abdomen and pelvis with intravenous contrast. All CT scans at this facility use one or more dose reduction techniques, viz.: automated exposure control; ma/kV adjustment per patient size (including targeted exams where dose is matched to indication; i.e. head); or iterative reconstruction technique. Coronal and sagittal reformatted images were created and reviewed. CONTRAST: 95 mL of [id number] administered intravenously. COMPARISON: CT - ABD PELVIS PO IV CONTRAST 2016-12-13 15:03 FINDINGS: Lower thorax: Heart size is normal. There are coronary artery calcifications. There is a hiatal hernia. ABDOMEN: Liver: There is fatty infiltration of the liver. Gallbladder and bile ducts: unremarkable Pancreas: Pancreas is mildly atrophic. Spleen: unremarkable Adrenals: unremarkable Kidneys and ureters: There are multiple left renal cysts. There are low-attenuation right renal lesions too small to characterize.There is no pelvocaliectasis or ureterectasis. Stomach and bowel: Stomach is partially distended. There is a small duodenal diverticulum. Rotation is normal. There is no small bowel obstruction. Appendix is absent. Terminal ileum is unremarkable. The colon is interposed between the liver and the abdominal wall. There is moderate stool in the colon. There is extensive sigmoid diverticulosis. There has been slight decrease in sigmoid wall thickening and enhancement compared to the prior study. There continues to be wall thickening and enhancement of the sigmoid and rectum. Appendix: See stomach and bowel PELVIS: Bladder: unremarkable Reproductive: The prostate is enlarged.Seminal vesicles have the expected configuration. ABDOMEN and PELVIS: Intraperitoneal space: There is trace fluid in the left lower quadrant.There is no free air. Bones/joints: There are postsurgical changes of median sternotomy Bony structures are osteopenic with degenerative change. Soft tissues: There is a moderately large left inguinal hernia containing fat. There is a small fat containing umbilical hernia. There are surgical clips in the left inguinal region. Vasculature: There are vascular calcifications. Lymph nodes: There is no pathologic adenopathy. IMPRESSION: Extensive sigmoid diverticulosis, continued sigmoid and rectal wall thickening and inflammation suggesting colitis/proctitis, no abscess or free air; fatty liver, no acute solid visceral abnormality
[2017-01-22] MEDS ORDERED: metroNIDAZOLE 500mg/100ml NS 100 ML IVPB STA (21:13)
[2017-01-22] MEDS ORDERED: Ciprofloxacin 400mg/200ml D5W 400 MG/200 ML BAG IVPB STA (21:13)
[2017-01-22] MEDS ORDERED: Ciprofloxacin 400mg/200ml D5W 400 MG/200 ML BAG IVPB ONE (21:22)
[2017-01-22] MEDS ORDERED: Lactated Ringer's 1,000 ML IV SCH (22:00)
--- NOTE | 2017-01-22 22:24 | CP.PCM.HP ---
<Estrella Diaz - Last Filed: 01/23/17 05:21> History of Present Illness - History of Present Illness History of Present Illness: 81 y/o M with PMHx of CAD/[place] 10 years ago, s/p CABG, BPH, TIA, presented with complaints of 'not feeling right' after attending a earlier today. After he got home, he went to the bathroom, felt clammy, with chills and had multiple bowel movements that were non-bloody, but not diarrhea. Unable to quantify, but more than 3 BMs. He was able to tolerate lunch, but did have nausea, without vomiting. He had mild headache earlier that has resolved. He started taking a new medication, for his memory loss prescribed by Dr. Forman. Unsure of name of medication. Only took first dose today. He is currently lying in stretcher in ED without complaints of pain, nausea. He has no appetite. He has not had BM since arriving to the ED. He was scheduled to have colonoscopy on 01/25/2017. His certified physical therapist assistant is Dr. Ravi. ROS: +weight loss, unintentional about 7lbs in last month, denies fevers, chills , chest pain, dyspnea, abdominal pain, pedal edema He was treated in Dec for similar symptoms PMD: Dr. Angulo and Dr. Gallegos PMHx: [place] 10 yo ago, s/p Quadruple Bypass heart surgery, BPH, TIA Allergies: NKDA Surgical Hx: CABG, Right knee surgery, appendectomy Social: never smoker, no etoh, no drugs Meds: Atorvastatin 10 mg, Vit B12 1000 mcg, Losartan 25 mg, Metoprolol Succ 100 mg, tamsulosin 0.4 mg, tramadol 50 mg Inpatient Care Manager Rn: Dr. Lara Neurologist: Dr. Forman Marketing Account Manager: Dr. 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 - MUSCULOSKELETAL/RHEUMATOLOGICAL Hx Falls: No - GASTROINTESTINAL Hx Gastrointestinal Disorders: Yes Other/Comment: Ulcerative Colitis - GENITOURINARY/GYNECOLOGICAL Hx Genitourinary Disorders: Yes Hx Prostate Problems: Yes - PSYCHIATRIC Hx Psychophysiologic Disorder: No Hx Substance Use: No - SURGICAL HISTORY Hx Coronary Artery Bypass Graft: Yes (X4) - ANESTHESIA Hx Anesthesia: Yes Hx Anesthesia Reactions: No Meds Allergies/Adverse Reactions: Allergies Allergy/AdvReac Type Severity Reaction Status Date / Time No Known Allergies Allergy Verified 01/22/17 21:25 Physical Exam - Constitutional Appears: Non-toxic, No Acute Distress - Head Exam Head Exam: ATRAUMATIC, NORMAL INSPECTION, NORMOCEPHALIC - Eye Exam Eye Exam: EOMI, Normal appearance, PERRL - ENT Exam ENT Exam: Mucous Membranes Moist, Normal Exam - Respiratory Exam Respiratory Exam: Clear to Auscultation Bilateral, NORMAL BREATHING PATTERN. absent: Prolonged Expiratory Phase, Rales, Rhonchi, Wheezes - Cardiovascular Exam Cardiovascular Exam: REGULAR RHYTHM, +S1, +S2 - GI/Abdominal Exam GI & Abdominal Exam: Normal Bowel Sounds, Soft. absent: Distended, Guarding, Tenderness - Rectal Exam Rectal Exam: Deferred - Extremities Exam Extremities exam: Negative for: pedal edema Results - Vital Signs Recent Vital Signs: Last Vital Signs Temp 98.1 F 01/22/17 22:13 Pulse 64 01/22/17 22:13 Resp 18 01/22/17 22:13 BP 104/55 L 01/22/17 22:13 Pulse Ox 97 01/22/17 21:15 - Labs Result Diagrams: 01/22/17 15:20 01/22/17 15:20 Labs: Laboratory Results - last 24 hr 01/22/17 01/22/17 01/22/17 14:59 15:20 15:20 WBC 12.3 H RBC 3.98 L Hgb 12.9 Hct 39.3 MCV 98.8 H D MCH 32.4 H MCHC 32.8 L RDW 14.1 Plt Count 166 MPV 8.5 Neut % (Auto) 87.6 H Lymph % (Auto) 7.8 L [place] % (Auto) 3.8 Eos % (Auto) 0.3 Baso % (Auto) 0.5 Neut # 10.7 H Lymph # 1.0 W[place]er # 0.5 Eos # 0.0 Baso # 0.1 Neutrophils % (Manual) 86 H Band Neutrophils % 1 Lymphocytes % (Manual) 9 L Monocytes % (Manual) 4 Platelet Estimate Normal RBC Morphology Normal PT INR APTT pO2 VBG pH VBG pCO2 VBG HCO3 VBG Total CO2 VBG O2 Sat (Calc) VBG Base Excess VBG Potassium Glucose Lactate FiO2 Sodium 139 Potassium 3.7 Chloride 103 Carbon Dioxide 28 Anion Gap 12 BUN 19 Creatinine 0.8 Est GFR ( Amer) > 60 Est GFR (Non-Af Amer) > 60 POC Glucose (mg/dL) 113 H Random Glucose 108 Calcium 9.0 Total Bilirubin 0.6 AST 27 ALT 35 Alkaline Phosphatase 52 Troponin I < 0.0120 Total Protein 7.1 Albumin 4.1 Globulin 3.0 Albumin/Globulin Ratio 1.4 Lipase 804 H Venous Blood Potassium Urine Color Urine Clarity Urine pH Ur Specific [place] Urine Protein Urine Glucose (UA) Urine Ketones Urine Blood Urine Nitrate Urine Bilirubin Urine Urobilinogen Ur Leukocyte Esterase Urine RBC (Auto) Urine Microscopic WBC Ur Squamous Epith Cells Urine Bacteria 01/22/17 01/22/17 01/22/17 15:25 16:00 16:00 WBC RBC Hgb Hct MCV MCH MCHC RDW Plt Count MPV Neut % (Auto) Lymph % (Auto) [place]er % (Auto) Eos % (Auto) Baso % (Auto) Neut # Lymph # W[place] # Eos # Baso # Neutrophils % (Manual) Band Neutrophils % Lymphocytes % (Manual) Monocytes % (Manual) Platelet Estimate RBC Morphology PT 12.8 INR 1.2 APTT 26.1 pO2 29 L VBG pH 7.36 VBG pCO2 50 VBG HCO3 25.2 VBG Total CO2 29.7 H VBG O2 Sat (Calc) 57.3 VBG Base Excess 1.9 VBG Potassium 3.8 Glucose 117 H Lactate 1.3 FiO2 21.0 Sodium 135.0 Potassium Chloride 104.0 Carbon Dioxide Anion Gap BUN Creatinine Est GFR ( Amer) Est GFR (Non-Af Amer) POC Glucose (mg/dL) Random Glucose Calcium Total Bilirubin AST ALT Alkaline Phosphatase Troponin I Total Protein Albumin Globulin Albumin/Globulin Ratio Lipase Venous Blood Potassium 3.8 Urine Color Yellow Urine Clarity Slighty-cloudy Urine pH 6.0 Ur Specific [place] 1.021 Urine Protein Negative Urine Glucose (UA) Neg Urine Ketones Trace Urine Blood Negative Urine Nitrate Negative Urine Bilirubin Negative Urine Urobilinogen 0.2-1.0 Ur Leukocyte Esterase Neg Urine RBC (Auto) 2 Urine Microscopic WBC 2 Ur Squamous Epith Cells < 1 Urine Bacteria Rare - Imaging and Cardiology CT scan - abdomen Status: Report reviewed by me Additional comment: FINDINGS: Lower thorax: Heart size is normal. There are coronary artery calcifications. There is a hiatal hernia. ABDOMEN: Liver: There is fatty infiltration of the liver. Gallbladder and bile ducts: unremarkable Pancreas: Pancreas is mildly atrophic. Spleen: unremarkable Adrenals: unremarkable Kidneys and ureters: There are multiple left renal cysts. There are low-attenuation right renal lesions too small to characterize.There is no pelvocaliectasis or ureterectasis. Stomach and bowel: Stomach is partially distended. There is a small duodenal diverticulum. Rotation is normal. There is no small bowel obstruction. Appendix is absent. Terminal ileum is unremarkable. The colon is interposed between the liver and the abdominal wall. There is moderate stool in the colon. There is extensive sigmoid diverticulosis. There has been slight decrease in sigmoid wall thickening and enhancement compared to the prior study. There continues to be wall thickening and enhancement of the sigmoid and rectum. Appendix: See stomach and bowel PELVIS: Bladder: unremarkable Reproductive: The prostate is enlarged.Seminal vesicles have the expected configuration. ABDOMEN and PELVIS: Intraperitoneal space: There is trace fluid in the left lower quadrant.There is no free air. Bones/joints: There are postsurgical changes of median sternotomy Bony structures are osteopenic with degenerative change. Soft tissues: There is a moderately large left inguinal hernia containing fat. There is a small fat containing umbilical hernia. There are surgical clips in the left inguinal region. Vasculature: There are vascular calcifications. Lymph nodes: There is no pathologic adenopathy. IMPRESSION: Extensive sigmoid diverticulosis, continued sigmoid and rectal wall thickening and inflammation suggesting colitis/proctitis, no abscess or free air; fatty liver, no acute solid visceral abnormality Assessment & Plan (1) Colitis Assessment and Plan: 81 year old male admitted for treatment of colitis, with associated leukocytosis. He has been afebrile and has not had any more BMs. CT A/P: Extensive sigmoid diverticulosis, continued sigmoid and rectal wall thickening and inflammation suggesting colitis/proctitis, no abscess or free air ; fatty liver, no acute solid visceral abnormality Will keep patient NPO and start IVF, c/w Cipro/Flagyl Zofran for nausea. Case was d/w Dr. Watters. Dr. Ravi will see pt in AM. Will hold off on stool studies given patient does not continue to have BMs, is afebrile and does not have signs of hypovolemia. Status: Acute (2) Leukocytosis Status: Acute (3) HTN (hypertension) Assessment and Plan: controlled, c/w losartan, metoprolol, atorvastatin Status: Chronic (4) BPH (benign prostatic hyperplasia) Assessment and Plan: c/w flomax Status: Chronic (5) DVT prophylaxis Assessment and Plan: lovenox Status: Acute <Nayan Gallegos - Last Filed: 01/23/17 07:07> Results - Vital Signs Recent Vital Signs: Last Vital Signs Temp 98.2 F 01/23/17 00:09 Pulse 69 01/23/17 00:09 Resp 19 01/23/17 00:09 BP 92/48 L 01/23/17 00:09 Pulse Ox 97 01/23/17 00:09 - Labs Result Diagrams: 01/23/17 05:40 01/23/17 05:40 Labs: Laboratory Results - last 24 hr 01/22/17 01/22/17 01/22/17 14:59 15:20 15:20 WBC 12.3 H RBC 3.98 L Hgb 12.9 Hct 39.3 MCV 98.8 H D MCH 32.4 H MCHC 32.8 L RDW 14.1 Plt Count 166 MPV 8.5 Neut % (Auto) 87.6 H Lymph % (Auto) 7.8 L [place] % (Auto) 3.8 Eos % (Auto) 0.3 Baso % (Auto) 0.5 Neut # 10.7 H Lymph # 1.0 [place]er # 0.5 Eos # 0.0 Baso # 0.1 Neutrophils % (Manual) 86 H Band Neutrophils % 1 Lymphocytes % (Manual) 9 L Monocytes % (Manual) 4 Platelet Estimate Normal RBC Morphology Normal PT INR APTT pO2 VBG pH VBG pCO2 VBG HCO3 VBG Total CO2 VBG O2 Sat (Calc) VBG Base Excess VBG Potassium Glucose Lactate FiO2 Sodium 139 Potassium 3.7 Chloride 103 Carbon Dioxide 28 Anion Gap 12 BUN 19 Creatinine 0.8 Est GFR ( Amer) > 60 Est GFR (Non-Af Amer) > 60 POC Glucose (mg/dL) 113 H Random Glucose 108 Calcium 9.0 Total Bilirubin 0.6 AST 27 ALT 35 Alkaline Phosphatase 52 Troponin I < 0.0120 Total Protein 7.1 Albumin 4.1 Globulin 3.0 Albumin/Globulin Ratio 1.4 Lipase 804 H Venous Blood Potassium Urine Color Urine Clarity Urine pH Ur Specific [place] Urine Protein Urine Glucose (UA) Urine Ketones Urine Blood Urine Nitrate Urine Bilirubin Urine Urobilinogen Ur Leukocyte Esterase Urine RBC (Auto) Urine Microscopic WBC Ur Squamous Epith Cells Urine Bacteria 01/22/17 01/22/17 01/22/17 15:25 16:00 16:00 WBC RBC Hgb Hct MCV MCH MCHC RDW Plt Count MPV Neut % (Auto) Lymph % (Auto) [place] % (Auto) Eos % (Auto) Baso % (Auto) Neut # Lymph # [place] # Eos # Baso # Neutrophils % (Manual) Band Neutrophils % Lymphocytes % (Manual) Monocytes % (Manual) Platelet Estimate RBC Morphology PT 12.8 INR 1.2 APTT 26.1 pO2 29 L VBG pH 7.36 VBG pCO2 50 VBG HCO3 25.2 VBG Total CO2 29.7 H VBG O2 Sat (Calc) 57.3 VBG Base Excess 1.9 VBG Potassium 3.8 Glucose 117 H Lactate 1.3 FiO2 21.0 Sodium 135.0 Potassium Chloride 104.0 Carbon Dioxide Anion Gap BUN Creatinine Est GFR ( Amer) Est GFR (Non-Af Amer) POC Glucose (mg/dL) Random Glucose Calcium Total Bilirubin AST ALT Alkaline Phosphatase Troponin I Total Protein Albumin Globulin Albumin/Globulin Ratio Lipase Venous Blood Potassium 3.8 Urine Color Yellow Urine Clarity Slighty-cloudy Urine pH 6.0 Ur Specific [place] 1.021 Urine Protein Negative Urine Glucose (UA) Neg Urine Ketones Trace Urine Blood Negative Urine Nitrate Negative Urine Bilirubin Negative Urine Urobilinogen 0.2-1.0 Ur Leukocyte Esterase Neg Urine RBC (Auto) 2 Urine Microscopic WBC 2 Ur Squamous Epith Cells < 1 Urine Bacteria Rare 01/23/17 01/23/17 01/23/17 05:40 05:40 05:40 WBC 6.8 RBC 3.56 L Hgb 12.0 Hct 34.7 L MCV 97.6 H MCH 33.7 H MCHC 34.5 RDW 14.0 Plt Count 156 MPV 8.6 Neut % (Auto) 59.4 Lymph % (Auto) 29.2 [place]er % (Auto) 9.4 Eos % (Auto) 1.4 Baso % (Auto) 0.6 Neut # 4.0 Lymph # 2.0 [place]er # 0.6 Eos # 0.1 Baso # 0.0 Neutrophils % (Manual) Band Neutrophils % Lymphocytes % (Manual) Monocytes % (Manual) Platelet Estimate RBC Morphology PT INR APTT 29.2 pO2 VBG pH VBG pCO2 VBG HCO3 VBG Total CO2 VBG O2 Sat (Calc) VBG Base Excess VBG Potassium Glucose Lactate FiO2 Sodium 143 Potassium 4.3 Chloride 110 H Carbon Dioxide 28 Anion Gap 9 L BUN 12 Creatinine 0.8 Est GFR ( Amer) > 60 Est GFR (Non-Af Amer) > 60 POC Glucose (mg/dL) Random Glucose 91 Calcium 8.7 Total Bilirubin AST ALT Alkaline Phosphatase Troponin I Total Protein Albumin Globulin Albumin/Globulin Ratio Lipase Venous Blood Potassium Urine Color Urine Clarity Urine pH Ur Specific [place] Urine Protein Urine Glucose (UA) Urine Ketones Urine Blood Urine Nitrate Urine Bilirubin Urine Urobilinogen Ur Leukocyte Esterase Urine RBC (Auto) Urine Microscopic WBC Ur Squamous Epith Cells Urine Bacteria Attending/Attestation - Attestation I have personally seen and examined this patient.: Yes I have fully participated in the care of the patient.: Yes I have reviewed all pertinent clinical information: Yes
[2017-01-23] MEDS: metroNIDAZOLE 500mg/100ml NS 100 ML IVPB SCH ×3 (00:48→17:07)
[2017-01-23 06:21] LABS: BASO % 0.6 % (0.0-2.0); EOS # 0.1 K/uL (0.0-0.7); EOS % 1.4 % (0.0-4.0); HEMATOCRIT 34.7 % (35.0-51.0); LYMPH % 29.2 % (20.0-40.0); MEAN CELL VOLUME 97.6 fl (80.0-94.0); MEAN CORPUSCULAR HEMOGLOBIN 33.7 pg (27.0-31.0); MEAN CORPUSCULAR HGB CONC 34.5 g/dL (33.0-37.0); MEAN PLATELET VOLUME 8.6 fl (7.2-11.7); MONO # 0.6 K/uL (0.0-0.8); MONO % 9.4 % (0.0-10.0); NEUT % 59.4 % (50.0-75.0); NRBC % 0.1 % (0.0-0.0); WHITE BLOOD COUNT 6.8 K/uL (4.8-10.8)
[2017-01-23 06:45] LABS: BLOOD UREA NITROGEN 12 mg/dl (9-20); CALCIUM 8.7 mg/dL (8.4-10.2); CARBON DIOXIDE 28 mmol/L (22-30); CHLORIDE 110 mmol/L (98-107); GFR AFRICAN-AMERICAN > 60; GLUCOSE,RANDOM 91 mg/dL (75-110); POTASSIUM 4.3 MMOL/L (3.6-5.0); SODIUM 143 mmol/l (132-148)
[2017-01-23] MEDS: Ciprofloxacin 400mg/200ml D5W 400 MG/200 ML BAG IVPB SCH ×2 (09:57→20:29)
--- NOTE | 2017-01-23 10:15 | CP.PCM.PN ---
<Audra Jones - Last Filed: 01/23/17 15:54> Subjective - Date & Time of Evaluation Date of Evaluation: 01/23/17 Time of Evaluation: 07:30 - Subjective Subjective: 81 YO M was seen and examined at bedside. Appears to be doing well this morning. States he is hungry. Has some abdominal discomfort. Denies any diarrhea or blood in stools. - Denies any overnight events. Objective - Vital Signs/Intake and Output Vital Signs (last 24 hours): Temp Pulse Resp BP Pulse Ox 97.2 F L 89 20 110/61 95 01/23/17 07:25 01/23/17 07:25 01/23/17 07:25 01/23/17 07:25 01/23/17 07:25 - Medications Medications: Current Medications Atorvastatin Calcium (Lipitor) 10 mg PO DAILY [facility] Enoxaparin Sodium (Lovenox) 40 mg SC DAILY [facility] PRN Reason: Protocol Famotidine (Pepcid) 20 mg IVP Q12 [facility] Ciprofloxacin (Cipro 400mg/200ml Dsw) 400 mg in 200 mls @ 200 mls/hr IVPB Q12 [facility] PRN Reason: Protocol Last Admin: 01/23/17 09:57 Dose: 200 mls/hr Metronidazole (Flagyl 500mg/100ml Ns) 100 mls @ 100 mls/hr IVPB Q8 [facility] PRN Reason: Protocol Last Admin: 01/23/17 09:57 Dose: 100 mls/hr Lactated Ringer's (Lactated Ringer's) 1,000 mls @ 100 mls/hr IV .Q10H [facility] Lactobacillus Acidophilus (Bacid Acidophilus) 1 cap PO DAILY [facility] Ondansetron HCl (Zofran Inj) 4 mg IVP Q6 PRN PRN Reason: Nausea/Vomiting Tramadol HCl (Ultram) 50 mg PO Q8H PRN PRN Reason: Pain, severe (8-10) - Labs Labs: 01/23/17 05:40 01/23/17 05:40 PT 12.8 Seconds (9.8-13.1) 01/22/17 16:00 INR 1.2 (0.9-1.2) 01/22/17 16:00 APTT 29.2 Seconds (25.6-37.1) 01/23/17 05:40 - Constitutional Appears: No Acute Distress - Head Exam Head Exam: NORMAL INSPECTION - Respiratory Exam Respiratory Exam: Clear to Ausculation Bilateral. absent: Rhonchi, Wheezes - Cardiovascular Exam Cardiovascular Exam: REGULAR RHYTHM, +S1, +S2 - GI/Abdominal Exam GI & Abdominal Exam: Soft, Normal Bowel Sounds. absent: Tenderness - Extremities Exam Extremities Exam: Normal Inspection - Neurological Exam Neurological Exam: Alert, Awake, Oriented x3 - Skin Skin Exam: Normal Color, Warm Assessment and Plan - Assessment and Plan (Free Text) Assessment: 81 year old male admitted for treatment of colitis, with associated leukocytosis. 1. Colitis He has been afebrile - WBC has nomralized on repeat CT A/P: Extensive sigmoid diverticulosis, continued sigmoid and rectal wall thickening and inflammation suggesting colitis/proctitis, no abscess or free air ; fatty liver, no acute solid visceral abnormality - Diet will be advanced and will preform serial exams - Will follow GI recommendations, possible colonoscopy - c/w Cipro/Flagyl Zofran for nausea. - Patients states his neurologist Dr. Forman, saw patient yesterday and advised agains taking the Namazine, which the patient took the day before his GI symptoms started. . 2. HTN - Currently holding patients hypertensive mediations because of current blood pressure 104/55. 3. Leukocytosis - Resolved 4. DVT prophylaxis - Lovenox <Nayan Gallegos A - Last Filed: 01/28/17 07:08> Objective - Vital Signs/Intake and Output Vital Signs (last 24 hours): Temp Pulse Resp BP Pulse Ox 97 F L 81 19 107/58 L 99 01/25/17 11:52 01/25/17 11:52 01/25/17 11:52 01/25/17 11:52 01/25/17 11:52 - Labs Labs: 01/24/17 07:10 01/24/17 07:10 PT 14.6 Seconds (9.8-13.1) H 01/25/17 05:29 INR 1.3 (0.9-1.2) H 01/25/17 05:29 APTT 29.2 Seconds (25.6-37.1) 01/23/17 05:40 Attending/Attestation - Attestation I have personally seen and examined this patient.: Yes I have fully participated in the care of the patient.: Yes I have reviewed all pertinent clinical information, including history, physical exam and plan: Yes
[2017-01-23] MEDS: Enoxaparin 40 mg Syringe SC SCH (13:02)
[2017-01-23] MEDS: Lactobacillus Acidophilus 500 MU Cap PO SCH (13:02)
[2017-01-24] MEDS: metroNIDAZOLE 500mg/100ml NS 100 ML IVPB SCH ×3 (01:10→16:03)
--- NOTE | 2017-01-24 06:52 | CP.PCM.PN ---
<Audra Jones - Last Filed: 01/24/17 09:45> Subjective - Date & Time of Evaluation Date of Evaluation: 01/24/17 Time of Evaluation: 07:34 - Subjective Subjective: Mr. Claros was seen at bedside this morning. He states that he had a bowl movement , but was small in quantity. No blood was noted. Has some abdominal discomfort. Objective - Vital Signs/Intake and Output Vital Signs (last 24 hours): Temp Pulse Resp BP Pulse Ox 98.1 F 60 18 117/51 L 94 L 01/24/17 00:43 01/24/17 00:43 01/24/17 00:43 01/24/17 00:43 01/24/17 00:43 - Medications Medications: Current Medications Atorvastatin Calcium (Lipitor) 10 mg PO DAILY [facility] Last Admin: 01/23/17 13:05 Dose: 10 mg Enoxaparin Sodium (Lovenox) 40 mg SC DAILY [facility] PRN Reason: Protocol Last Admin: 01/23/17 13:02 Dose: 40 mg Famotidine (Pepcid) 20 mg IVP Q12 [facility] Last Admin: 01/23/17 20:28 Dose: 20 mg Ciprofloxacin (Cipro 400mg/200ml Dsw) 400 mg in 200 mls @ 200 mls/hr IVPB Q12 [facility] PRN Reason: Protocol Last Admin: 01/23/17 20:29 Dose: 200 mls/hr Metronidazole (Flagyl 500mg/100ml Ns) 100 mls @ 100 mls/hr IVPB Q8 [facility] PRN Reason: Protocol Last Admin: 01/24/17 01:10 Dose: 100 mls/hr Lactated Ringer's (Lactated Ringer's) 1,000 mls @ 100 mls/hr IV .Q10H [facility] Lactobacillus Acidophilus (Bacid Acidophilus) 1 cap PO DAILY [facility] Last Admin: 01/23/17 13:02 Dose: 1 cap Ondansetron HCl (Zofran Inj) 4 mg IVP Q6 PRN PRN Reason: Nausea/Vomiting Tramadol HCl (Ultram) 50 mg PO Q8H PRN PRN Reason: Pain, severe (8-10) - Labs Labs: 01/23/17 05:40 01/23/17 05:40 PT 12.8 Seconds (9.8-13.1) 01/22/17 16:00 INR 1.2 (0.9-1.2) 01/22/17 16:00 APTT 29.2 Seconds (25.6-37.1) 01/23/17 05:40 - Constitutional Appears: No Acute Distress - Respiratory Exam Respiratory Exam: Clear to Ausculation Bilateral, NORMAL BREATHING PATTERN. absent: Rhonchi, Wheezes - Cardiovascular Exam Cardiovascular Exam: REGULAR RHYTHM, +S1, +S2 - GI/Abdominal Exam GI & Abdominal Exam: Soft, Normal Bowel Sounds. absent: Tenderness - Extremities Exam Extremities Exam: Normal Inspection - Neurological Exam Neurological Exam: Alert, Awake, Oriented x3 - Skin Skin Exam: Normal Color, Warm Assessment and Plan - Assessment and Plan (Free Text) Assessment: 81 year old male admitted for treatment of colitis, with associated leukocytosis. 1. Colitis He has been afebrile - WBC has normalized on repeat CT A/P: Extensive sigmoid diverticulosis, continued sigmoid and rectal wall thickening and inflammation suggesting colitis/proctitis, no abscess or free air ; fatty liver, no acute solid visceral abnormality - Diet will be advanced and will preform serial exams - Will follow GI recommendations - c/w Cipro/Flagyl Zofran for nausea. - Patients states his neurologist Dr. Forman, saw patient yesterday and advised agains taking the Namazine, which the patient took the day before his GI symptoms started. - Clear fluids only today - Bowl prep today. NPO overnight - Colonoscopy tomorrow in the AM 2. HTN - Currently holding patients hypertensive mediations because of current blood pressure 104/55. 3. DVT prophylaxis - Lovenox <Juan Pablo Angulo - Last Filed: 01/25/17 06:54> Objective - Vital Signs/Intake and Output Vital Signs (last 24 hours): Temp Pulse Resp BP Pulse Ox 98.4 F 77 18 112/66 98 01/25/17 00:43 01/25/17 00:43 01/25/17 00:43 01/25/17 00:43 01/25/17 00:43 - Medications Medications: Current Medications Atorvastatin Calcium (Lipitor) 10 mg PO DAILY [facility] Last Admin: 01/24/17 08:53 Dose: 10 mg Famotidine (Pepcid) 20 mg IVP Q12 [facility] Last Admin: 01/24/17 21:12 Dose: 20 mg Ciprofloxacin (Cipro 400mg/200ml Dsw) 400 mg in 200 mls @ 200 mls/hr IVPB Q12 [facility] PRN Reason: Protocol Last Admin: 01/24/17 21:07 Dose: 200 mls/hr Metronidazole (Flagyl 500mg/100ml Ns) 100 mls @ 100 mls/hr IVPB Q8 [facility] PRN Reason: Protocol Last Admin: 01/25/17 01:01 Dose: 100 mls/hr Lactated Ringer's (Lactated Ringer's) 1,000 mls @ 100 mls/hr IV .Q10H [facility] Last Admin: 01/25/17 04:32 Dose: Not Given Lactobacillus Acidophilus (Bacid Acidophilus) 1 cap PO DAILY [facility] Last Admin: 01/24/17 08:51 Dose: 1 cap Ondansetron HCl (Zofran Inj) 4 mg IVP Q6 PRN PRN Reason: Nausea/Vomiting Tramadol HCl (Ultram) 50 mg PO Q8H PRN PRN Reason: Pain, severe (8-10) - Labs Labs: 01/24/17 07:10 01/24/17 07:10 PT 12.8 Seconds (9.8-13.1) 01/22/17 16:00 INR 1.2 (0.9-1.2) 01/22/17 16:00 APTT 29.2 Seconds (25.6-37.1) 01/23/17 05:40 Attending/Attestation - Attestation I have personally seen and examined this patient.: Yes I have fully participated in the care of the patient.: Yes I have reviewed all pertinent clinical information, including history, physical exam and plan: Yes
[2017-01-24 07:39] LABS: BASO # 0.1 K/uL (0.0-0.2); BASO % 0.9 % (0.0-2.0); EOS # 0.1 K/uL (0.0-0.7); EOS % 1.1 % (0.0-4.0); HEMATOCRIT 40.4 % (35.0-51.0); LYMPH % 26.8 % (20.0-40.0); MEAN CELL VOLUME 97.1 fl (80.0-94.0); MEAN CORPUSCULAR HEMOGLOBIN 33.1 pg (27.0-31.0); MEAN CORPUSCULAR HGB CONC 34.1 g/dL (33.0-37.0); MEAN PLATELET VOLUME 8.4 fl (7.2-11.7); MONO # 0.6 K/uL (0.0-0.8); MONO % 8.4 % (0.0-10.0); NEUT # 4.6 K/uL (1.8-7.0); NEUT % 62.8 % (50.0-75.0); NRBC % 0.2 % (0.0-0.0); WHITE BLOOD COUNT 7.4 K/uL (4.8-10.8)
[2017-01-24 07:54] LABS: ALB/GLOB RATIO 1.4 (1.0-2.1); ALKALINE PHOSPHATASE 63 U/L (38-126); ALT/SGPT 33 U/L (21-72); AST/SGOT 23 U/L (17-59); BILIRUBIN,TOTAL 0.9 mg/dl (0.2-1.3); BLOOD UREA NITROGEN 13 mg/dl (9-20); CALCIUM 9.1 mg/dL (8.4-10.2); CARBON DIOXIDE 26 mmol/L (22-30); CHLORIDE 106 mmol/L (98-107); GFR AFRICAN-AMERICAN > 60; GLUCOSE,RANDOM 97 mg/dL (75-110); LIPASE 138 U/L (23-300); POTASSIUM 3.8 MMOL/L (3.6-5.0); SODIUM 143 mmol/l (132-148); TOTAL PROTEIN 7.2 G/DL (6.3-8.2)
[2017-01-24] MEDS: Ciprofloxacin 400mg/200ml D5W 400 MG/200 ML BAG IVPB SCH ×2 (08:45→21:07)
[2017-01-24] MEDS: Lactated Ringer's 1,000 ML IV SCH ×2 (08:48→16:08)
[2017-01-24] MEDS: Lactobacillus Acidophilus 500 MU Cap PO SCH (08:51)
--- NOTE | 2017-01-24 08:51 | CON ---
DATE: 01/23/2017 REASON FOR CONSULTATION: Colitis. HISTORY OF PRESENT ILLNESS: This is a very pleasant 81-year-old male who comes in with abdominal pain and discomfort, nonbloody bowel movements, but not real diarrhea. Pain has improved. Had no blood in the stool. Currently lying in bed comfortably, in no apparent distress. PAST MEDICAL HISTORY: CABG, BPH, TIA. PAST SURGICAL HISTORY: As above. MEDICATIONS: Have been reviewed. REVIEW OF SYSTEMS: All other systems have been reviewed and negative apart from the HPI. PHYSICAL EXAMINATION: VITAL SIGNS: During the hospital, grossly unremarkable. GENERAL: Pleasant, elderly appearing male, lying comfortably in the bed, in no apparent distress. HEENT: Head: Normocephalic and atraumatic. Eyes: Pupils are equally reactive to light bilaterally. No conjunctival pallor or icterus. NECK: Supple. Normal range of motion. No lymphadenopathy appreciated. LUNGS: Coarse breath sounds bilaterally. HEART: S1 and S2. Regular rate and rhythm. No murmurs appreciated. ABDOMEN: Soft and nontender. Bowel sounds present. No rebound. No guarding. RECTAL: Deferred. EXTREMITIES: Pulses present bilaterally. SKIN: Warm, dry, and intact. NEUROLOGIC: A and O x3. LABORATORY DATA: Labs reviewed include WBC 12.3 down to 6.0, hemoglobin of 12.0 and stable. CAT scan shows diverticulosis and colitis of the sigmoid. ASSESSMENT AND PLAN: This is an 81-year-old male with ongoing chronic colitis. From GI standpoint, he is doing well. He can be discharged home safely if okay with primary care team. Thank you for the consult. Obdulio Ravi MD/ PhD cc:
[2017-01-24] MEDS: Enoxaparin 40 mg Syringe SC SCH (08:53)
[2017-01-24] MEDS ORDERED: Peg-Electrolyte Oral Soln 4L (Golytely) PO ONE (16:00)
--- NOTE | 2017-01-24 19:34 | CARD ---
APPROVED REPORT EKG Measurement Heart [id number] <Conclusion> Normal sinus rhythm Right bundle branch block Inferior infarct, age undetermined Abnormal ECG
[2017-01-24] MEDS ORDERED: Bisacodyl 5mg EC Tab PO ONE (22:00)
[2017-01-25] MEDS: metroNIDAZOLE 500mg/100ml NS 100 ML IVPB SCH ×2 (01:01→09:01)
[2017-01-25] MEDS: Lactated Ringer's 1,000 ML IV SCH ×2 (04:32→13:58)
--- NOTE | 2017-01-25 07:00 | CP.PCM.PN ---
Objective - Vital Signs/Intake and Output Vital Signs (last 24 hours): Temp Pulse Resp BP Pulse Ox 98.4 F 77 18 112/66 98 01/25/17 00:43 01/25/17 00:43 01/25/17 00:43 01/25/17 00:43 01/25/17 00:43 - Medications Medications: Current Medications Atorvastatin Calcium (Lipitor) 10 mg PO DAILY [facility] Last Admin: 01/24/17 08:53 Dose: 10 mg Famotidine (Pepcid) 20 mg IVP Q12 RAAD Last Admin: 01/24/17 21:12 Dose: 20 mg Ciprofloxacin (Cipro 400mg/200ml Dsw) 400 mg in 200 mls @ 200 mls/hr IVPB Q12 RAAD PRN Reason: Protocol Last Admin: 01/24/17 21:07 Dose: 200 mls/hr Metronidazole (Flagyl 500mg/100ml Ns) 100 mls @ 100 mls/hr IVPB Q8 RAAD PRN Reason: Protocol Last Admin: 01/25/17 01:01 Dose: 100 mls/hr Lactated Ringer's (Lactated Ringer's) 1,000 mls @ 100 mls/hr IV .Q10H [facility] Last Admin: 01/25/17 04:32 Dose: Not Given Lactobacillus Acidophilus (Bacid Acidophilus) 1 cap PO DAILY [facility] Last Admin: 01/24/17 08:51 Dose: 1 cap Ondansetron HCl (Zofran Inj) 4 mg IVP Q6 PRN PRN Reason: Nausea/Vomiting Tramadol HCl (Ultram) 50 mg PO Q8H PRN PRN Reason: Pain, severe (8-10) - Labs Labs: 01/24/17 07:10 01/24/17 07:10 PT 12.8 Seconds (9.8-13.1) 01/22/17 16:00 INR 1.2 (0.9-1.2) 01/22/17 16:00 APTT 29.2 Seconds (25.6-37.1) 01/23/17 05:40
[2017-01-25] MEDS: Lactobacillus Acidophilus 500 MU Cap PO SCH (08:59)
[2017-01-25] MEDS: Ciprofloxacin 400mg/200ml D5W 400 MG/200 ML BAG IVPB SCH (09:02)
[2017-01-25] MEDS ORDERED: Lactated Ringer's 1,000 ML IV ONE (10:45)
[2017-01-25] MEDS ORDERED: Lidocaine 2% MPF (5 ml) Inj ONE (11:22)
[2017-01-25] MEDS ORDERED: Propofol 10 mg/ml Inj (20 ML) ONE (11:22)
[2017-01-25 11:43] VITALS: TEMP 97; O2SAT 99
[2017-01-25 11:55] VITALS: BP 107/58; PULSE 81; RESP 19
--- NOTE | 2017-01-25 18:29 | CP.PCM.DIS ---
Provider - Provider Date of Admission: 01/22/17 21:16 Attending physician: Nayan Mohr MD Primary care physician: Dr. Mohr Time Spent in preparation of Discharge (in minutes): 30 Diagnosis - Discharge Diagnosis (1) Colitis Status: Acute Hospital Course - Lab Results Lab Results: Most Recent Lab Values WBC 7.4 K/uL (4.8-10.8) 01/24/17 07:10 RBC 4.16 Mil/uL (4.40-5.90) L 01/24/17 07:10 Hgb 13.8 g/dL (12.0-18.0) 01/24/17 07:10 Hct 40.4 % (35.0-51.0) 01/24/17 07:10 MCV 97.1 fl (80.0-94.0) H 01/24/17 07:10 MCH 33.1 pg (27.0-31.0) H 01/24/17 07:10 MCHC 34.1 g/dL (33.0-37.0) 01/24/17 07:10 RDW 14.0 % (11.5-14.5) 01/24/17 07:10 Plt Count 169 K/uL (130-400) 01/24/17 07:10 MPV 8.4 fl (7.2-11.7) 01/24/17 07:10 Neut % (Auto) 62.8 % (50.0-75.0) 01/24/17 07:10 Lymph % (Auto) 26.8 % (20.0-40.0) 01/24/17 07:10 [place] % (Auto) 8.4 % (0.0-10.0) 01/24/17 07:10 Eos % (Auto) 1.1 % (0.0-4.0) 01/24/17 07:10 Baso % (Auto) 0.9 % (0.0-2.0) 01/24/17 07:10 Neut # 4.6 K/uL (1.8-7.0) 01/24/17 07:10 Lymph # 2.0 K/uL (1.0-4.3) 01/24/17 07:10 [place] # 0.6 K/uL (0.0-0.8) 01/24/17 07:10 Eos # 0.1 K/uL (0.0-0.7) 01/24/17 07:10 Baso # 0.1 K/uL (0.0-0.2) 01/24/17 07:10 Neutrophils % (Manual) 86 % (42-75) H 01/22/17 15:20 Band Neutrophils % 1 % (0-2) 01/22/17 15:20 Lymphocytes % (Manual) 9 % (20-50) L 01/22/17 15:20 Monocytes % (Manual) 4 % (0-10) 01/22/17 15:20 Platelet Estimate Normal (NORMAL) 01/22/17 15:20 RBC Morphology Normal (NORMAL) 01/22/17 15:20 PT 14.6 Seconds (9.8-13.1) H 01/25/17 05:29 INR 1.3 (0.9-1.2) H 01/25/17 05:29 APTT 29.2 Seconds (25.6-37.1) 01/23/17 05:40 pO2 29 mm/Hg (30-55) L 01/22/17 16:00 VBG pH 7.36 (7.32-7.43) 01/22/17 16:00 VBG pCO2 50 mmHg (40-60) 01/22/17 16:00 VBG HCO3 25.2 mmol/L 01/22/17 16:00 VBG Total CO2 29.7 mmol/L (22-28) H 01/22/17 16:00 VBG O2 Sat (Calc) 57.3 % (40-65) 01/22/17 16:00 VBG Base Excess 1.9 mmol/L (0.0-2.0) 01/22/17 16:00 VBG Potassium 3.8 mmol/L (3.6-5.2) 01/22/17 16:00 Sodium 135.0 mmol/L (132-148) 01/22/17 16:00 Chloride 104.0 mmol/L (98-107) 01/22/17 16:00 Glucose 117 mg/dL (75-110) H 01/22/17 16:00 Lactate 1.3 mmol/L (0.7-2.1) 01/22/17 16:00 FiO2 21.0 % 01/22/17 16:00 Sodium 143 mmol/l (132-148) 01/24/17 07:10 Potassium 3.8 MMOL/L (3.6-5.0) 01/24/17 07:10 Chloride 106 mmol/L (98-107) 01/24/17 07:10 Carbon Dioxide 26 mmol/L (22-30) 01/24/17 07:10 Anion Gap 15 (10-20) 01/24/17 07:10 BUN 13 mg/dl (9-20) 01/24/17 07:10 Creatinine 1.0 mg/dl (0.8-1.5) 01/24/17 07:10 Est GFR ( Amer) > 60 01/24/17 07:10 Est GFR (Non-Af Amer) > 60 01/24/17 07:10 POC Glucose (mg/dL) 113 mg/dL (65-110) H 01/22/17 14:59 Random Glucose 97 mg/dL (75-110) 01/24/17 07:10 Calcium 9.1 mg/dL (8.4-10.2) 01/24/17 07:10 Total Bilirubin 0.9 mg/dl (0.2-1.3) 01/24/17 07:10 AST 23 U/L (17-59) 01/24/17 07:10 ALT 33 U/L (21-72) 01/24/17 07:10 Alkaline Phosphatase 63 U/L (38-126) 01/24/17 07:10 Troponin I < 0.0120 ng/mL (0.00-0.120) 01/22/17 15:20 Total Protein 7.2 G/DL (6.3-8.2) 01/24/17 07:10 Albumin 4.2 g/dL (3.5-5.0) 01/24/17 07:10 Globulin 3.0 gm/dL (2.2-3.9) 01/24/17 07:10 Albumin/Globulin Ratio 1.4 (1.0-2.1) 01/24/17 07:10 Lipase 138 U/L (23-300) 01/24/17 07:10 Venous Blood Potassium 3.8 mmol/L (3.6-5.2) 01/22/17 16:00 Urine Color Yellow (YELLOW) 01/22/17 15:25 Urine Clarity Slighty-cloudy (Clear) 01/22/17 15:25 Urine pH 6.0 (5.0-8.0) 01/22/17 15:25 Ur Specific [place] 1.021 (1.003-1.030) 01/22/17 15:25 Urine Protein Negative mg/dL (NEGATIVE) 01/22/17 15:25 Urine Glucose (UA) Neg mg/dL (Normal) 01/22/17 15:25 Urine Ketones Trace mg/dL (NEGATIVE) 01/22/17 15:25 Urine Blood Negative (NEGATIVE) 01/22/17 15:25 Urine Nitrate Negative (NEGATIVE) 01/22/17 15:25 Urine Bilirubin Negative (NEGATIVE) 01/22/17 15:25 Urine Urobilinogen 0.2-1.0 mg/dL (0.2-1.0) 01/22/17 15:25 Ur Leukocyte Esterase Neg Rama/uL (Negative) 01/22/17 15:25 Urine RBC (Auto) 2 /hpf (0-3) 01/22/17 15:25 Urine Microscopic WBC 2 /hpf (0-5) 01/22/17 15:25 Ur Squamous Epith Cells < 1 /hpf (0-5) 01/22/17 15:25 Urine Bacteria Rare (<OCC) 01/22/17 15:25 - Hospital Course Hospital Course: 81 y/o M with PMHx of 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 1. Colitis He remained afebrile during stay - WBC has normalized on repeat CT A/P: Extensive sigmoid diverticulosis, continued sigmoid and rectal wall thickening and inflammation suggesting colitis/proctitis, no abscess or free air ; fatty liver, no acute solid visceral abnormality - c/w Cipro/Flagyl Zofran for nausea. - Patients states his neurologist Dr. Forman, saw patient in the hospital and advised against taking the Namazine, which the patient took the day before his GI symptoms started. - Patient had a colonoscopy which showed collitis. - Script Given for Metronidazole 500mg Q8 ( 7 more days) Ciprofloxacin 500 mg Q12 ( 7 days ) 2. HTN - Patients blood pressure appeared overcontrolled on admission, medications were held - PAtients home metoprolol dosage is decreased 100mg to 50mg. Continue current Cozaar dosage Follow up w/ PMD and gasteroenterolgy in 1 week Discharge Exam - Head Exam Head Exam: NORMAL INSPECTION - Eye Exam Eye Exam: Normal appearance - Respiratory Exam Respiratory Exam: NORMAL BREATHING PATTERN. absent: Rales, Rhonchi - Cardiovascular Exam Cardiovascular Exam: REGULAR RHYTHM, +S1, +S2 - GI/Abdominal Exam GI & Abdominal Exam: Normal Bowel Sounds, Soft. absent: Tenderness - Neurological Exam Neurological exam: Alert, CN II-XII Intact, Oriented x3 - Skin Skin Exam: Normal Color, Warm Discharge Plan - Discharge Medications Prescriptions: Ciprofloxacin HCl [Cipro] 500 mg PO Q12 #15 tablet Losartan [Cozaar] 25 mg PO DAILY #30 tab Metoprolol Succinate 50 mg PO DAILY 30 Days tab.er.24h Metronidazole [Flagyl] 500 mg PO Q8 #22 tablet - Follow Up Plan Condition: STABLE Disposition: HOME/ ROUTINE Instructions: Colonoscopy (DC), Infectious Colitis (GEN) Additional Instructions: - Patient has been advised to follow up with Dr. Mohr, Dr. Forman, and Gastroenterology. - ER precausions have been given - Patient has been advised to change the dosage of Metoprolol to 50 mg, since his blood pressure is over controlled. - Also advised to not take the medication of Alzheimer until he follows up with Dr. Forman. - Continue other home medications as usual: - Script Given for Metronidazole 500mg Q8 ( 7 more days) Ciprofloxacin 500 mg Q12 ( 7 days ) - If symptoms wosen please return to the ER Referrals: Nayan Mohr MD [Staff Provider] - Obdulio Ravi MD, PhD [Staff Provider] - Juvencio Forman MD [Medical Doctor] -
== END 2017-01-25 14:17 | disposition home or self-care (01) | DRG 392 ==
LOC: H.ER 13:43 → H.ERHOLD 21:16 → H.MEDSURG1 22:17
PROVIDERS: ADMIT Family Medicine; ATTEND Family Medicine
DX: K52.9 Noninfective gastroenteritis and colitis, unspecified (principal); Z95.1 Presence of aortocoronary bypass graft; D72.829 Elevated white blood cell count, unspecified; K57.30 Diverticulosis of large intestine without perforation or abscess without bleeding; E78.00 Pure hypercholesterolemia, unspecified; I10 Essential (primary) hypertension; I25.10 Atherosclerotic heart disease of native coronary artery without angina pectoris; Z86.73 Personal history of transient ischemic attack (TIA), and cerebral infarction without residual deficits; I25.2 Old myocardial infarction; N40.0 Benign prostatic hyperplasia without lower urinary tract symptoms

== ENCOUNTER 2017-01-29 14:25 | Emergency (ER) | payer MEDICARE, OTHER ==
[2017-01-29 14:25] VITALS: BMI 22.8
[2017-01-29 14:32] VITALS: TEMP 98
[2017-01-29] MEDS ORDERED: Sodium Chloride 0.9% 1,000 ML IV STA (15:44)
--- NOTE | 2017-01-29 16:23 | ED PDOC ---
HPI: General Adult Time Seen by Provider: 01/29/17 14:45 Chief Complaint (Nursing): Allergic Reaction Chief Complaint (Provider): Allergic Reaction History Per: Patient History/Exam Limitations: no limitations Onset/Duration Of Symptoms: Days (x1) Current Symptoms Are (Timing): Still Present Additional Complaint(s): Harsha Claros is an 81 year old male with a past medical history of Alzheimers, colitis, TIA, HTN, and BPH, who presents to the ED for evaluation due to a reaction to new medication x1 day. Patient reports starting Namzaric per his Neurologist, Dr. Goldstein. pt wass here for same last week, but is still taking the medication. Reports feeling weak, dizzy, and diaphoretic after medicating at 08:00. Patient took another dose at 12:00 and reports feeling the same symptoms. Denies fever, vomiting, and diarrhea, chest pain or shortness of breath. PMD: Nayan Gallegos Past Medical History Reviewed: Historical Data, Nursing Documentation, Vital Signs Vital Signs: Last Vital Signs Temp 98.0 F 01/29/17 14:30 Pulse 84 01/29/17 17:31 Resp 18 01/29/17 17:31 BP 118/66 01/29/17 17:31 Pulse Ox 97 01/30/17 14:54 - Medical History PMH: Benign Prostatic Hyperplasia, CAD, Dementia (Mild), HTN, Hypercholesterolemia, TIA Denies: HIV, Chronic Kidney Disease Other PMH: Colitis - Surgical History Surgical History: CABG (X4) - Family History Family History: States: Unknown Family Hx - Social History Current smoker - smoking cessation education provided: No Alcohol: None Drugs: Denies - Home Medications Home Medications: Ambulatory Orders Medication Instructions Recorded Tamsulosin [Flomax] 0.4 mg PO DAILY 08/03/16 traMADol [Ultram] 50 mg PO Q8H PRN 08/03/16 Atorvastatin [Lipitor] 10 mg PO DAILY tab 08/05/16 Cyanocobalamin [Vitamin B12 1000 2,500 mcg PO DAILY 12/13/16 mcg Tab] Lactobacillus Combination No.8 1 cap PO DAILY 12/13/16 [Adult Probiotic] Ciprofloxacin HCl [Cipro] 500 mg PO Q12 #15 tablet 01/25/17 Losartan [Cozaar] 25 mg PO DAILY #30 tab 01/25/17 Metoprolol Succinate 50 mg PO DAILY 30 Days tab.er.24h 01/25/17 Metronidazole [Flagyl] 500 mg PO Q8 #22 tablet 01/25/17 - Allergies Allergies/Adverse Reactions: Allergies Allergy/AdvReac Type Severity Reaction Status Date / Time No Known Allergies Allergy Verified 01/29/17 14:30 Review of Systems ROS Statement: Except As Marked, All Systems Reviewed And Found Negative Constitutional: Positive for: Sweats. Negative for: Fever Gastrointestinal: Negative for: Vomiting, Diarrhea Neurological: Positive for: Weakness, Dizziness Physical Exam - Reviewed Nursing Documentation Reviewed: Yes Vital Signs Reviewed: Yes - Physical Exam Appears: Positive for: Well, Non-toxic, No Acute Distress Head Exam: Positive for: ATRAUMATIC, NORMAL INSPECTION, NORMOCEPHALIC Skin: Positive for: Normal Color, Warm, Dry Neck: Positive for: Normal, Painless ROM, Supple Cardiovascular/Chest: Positive for: Regular Rate, Rhythm. Negative for: Murmur Respiratory: Positive for: Normal Breath Sounds. Negative for: Respiratory Distress Gastrointestinal/Abdominal: Positive for: Normal Exam, Bowel Sounds, Soft. Negative for: Tenderness Back: Positive for: Normal Inspection. Negative for: L CVA Tenderness, R CVA Tenderness, Vertebral Tenderness Extremity: Positive for: Normal ROM. Negative for: Pedal Edema, Deformity Neurologic/Psych: Positive for: Alert, Oriented (x3). Negative for: Motor/ Sensory Deficits - Laboratory Results Result Diagrams: 01/29/17 16:36 01/29/17 16:36 - ECG O2 Sat by Pulse Oximetry: 97 (RA) Pulse Ox Interpretation: Normal Medical Decision Making Medical Decision Making: Time: 15:44 Initial Impression: Allergic reaction to medication Plan: --EKG --CMP --CBC w/ differential --Sodium Chloride 0.9% 1,000 ml IV --Contacted Dr. Forman, pt's neurologist. as per dr cabral- Patient is advised to stop medication and followup with him tomorrow. --Reevaluation Time: 16:30 --EKG shows right bundle branch block. Unchanged from prior. 17:00 -Upon provider evaluation patient is medically stable, pt feels better, ate food. and requires no further treatment in the ED at this time. Patient will be discharged home. Counseling was provided and all questions were answered regarding diagnosis and need for follow up. There is agreement to discharge plan. Return if symptoms persist or worsen. Scribe Attestation: Documented by oRbb Whitaker, acting as a scribe for Hafsa Moscoso MD. Provider Scribe Attestation: All medical record entries made by the Scribe were at my direction and personally dictated by me. I have reviewed the chart and agree that the record accurately reflects my personal performance of the history, physical exam, medical decision making, and the department course for this patient. I have also personally directed, reviewed, and agree with the discharge instructions and disposition. Disposition - Clinical Impression Clinical Impression: Medication reaction - Patient ED Disposition Is Patient to be Admitted: No Counseled Patient/Family Regarding: Studies Performed, Diagnosis, Need For Followup - Disposition Referrals: [facility] [Outside] [facility] [Outside] Disposition: Routine/Home Disposition Time: 17:05 Condition: IMPROVED Additional Instructions: follow up with dr cabral tomorrow return to the ed with any worsening or concerning symptoms Forms: [employer] ([employer])
[2017-01-29 16:41] LABS: BASO % 0.6 % (0.0-2.0); EOS % 0.7 % (0.0-4.0); HEMATOCRIT 41.9 % (35.0-51.0); LYMPH # 1.3 K/uL (1.0-4.3); LYMPH % 18.4 % (20.0-40.0); MEAN CELL VOLUME 98.6 fl (80.0-94.0); MEAN CORPUSCULAR HEMOGLOBIN 32.5 pg (27.0-31.0); MEAN PLATELET VOLUME 8.8 fl (7.2-11.7); MONO # 0.7 K/uL (0.0-0.8); MONO % 9.9 % (0.0-10.0); NEUT # 5.2 K/uL (1.8-7.0); NEUT % 70.4 % (50.0-75.0); WHITE BLOOD COUNT 7.3 K/uL (4.8-10.8)
[2017-01-29 17:04] LABS: ALB/GLOB RATIO 1.4 (1.0-2.1); ALKALINE PHOSPHATASE 42 U/L (38-126); ALT/SGPT 51 U/L (21-72); AST/SGOT 38 U/L (17-59); BILIRUBIN,TOTAL 0.4 mg/dl (0.2-1.3); BLOOD UREA NITROGEN 17 mg/dl (9-20); CALCIUM 8.9 mg/dL (8.4-10.2); CARBON DIOXIDE 22 mmol/L (22-30); CHLORIDE 107 mmol/L (98-107); GFR AFRICAN-AMERICAN > 60; GLUCOSE,RANDOM 133 mg/dL (75-110); POTASSIUM 3.7 MMOL/L (3.6-5.0); SODIUM 140 mmol/l (132-148); TOTAL PROTEIN 6.8 G/DL (6.3-8.2)
[2017-01-29 17:40] VITALS: BP 118/66; PULSE 84; RESP 18
--- NOTE | 2017-01-30 11:19 | CARD ---
APPROVED REPORT EKG Measurement Heart [id number] <Conclusion> Normal sinus rhythm Right bundle branch block Inferior infarct, age undetermined Abnormal ECG
[2017-01-30 14:54] VITALS: O2SAT 97
== END 2017-01-29 17:31 | disposition home or self-care (01) ==
LOC: H.ER 14:25
DX: T78.40XA Allergy, unspecified, initial encounter (principal); E78.00 Pure hypercholesterolemia, unspecified; F02.80 Dementia in other diseases classified elsewhere, unspecified severity, without behavioral disturbance, psychotic disturbance, mood disturbance, and anxiety; G30.9 Alzheimer's disease, unspecified; I10 Essential (primary) hypertension; I25.10 Atherosclerotic heart disease of native coronary artery without angina pectoris; N40.0 Benign prostatic hyperplasia without lower urinary tract symptoms; Z86.73 Personal history of transient ischemic attack (TIA), and cerebral infarction without residual deficits; Z95.1 Presence of aortocoronary bypass graft

== ENCOUNTER 2018-03-21 07:33 | Day surgery (SDC) | payer MEDICARE, OTHER ==
[2018-03-21] MEDS ORDERED: Propofol 10 mg/ml Inj (20 ML) ONE (10:07)
[2018-03-21 11:52] VITALS: TEMP 97; O2SAT 96
[2018-03-21 12:08] VITALS: BP 117/43; PULSE 72; RESP 16
== END 2018-03-21 12:30 | disposition home or self-care (01) ==
LOC: H.ENDO 07:33
PROVIDERS: ATTEND Internal Medicine Gastroenterology
DX: K52.3 Indeterminate colitis (principal); I25.10 Atherosclerotic heart disease of native coronary artery without angina pectoris; E78.5 Hyperlipidemia, unspecified; I10 Essential (primary) hypertension; Z86.73 Personal history of transient ischemic attack (TIA), and cerebral infarction without residual deficits; K64.1 Second degree hemorrhoids; K57.30 Diverticulosis of large intestine without perforation or abscess without bleeding
CPT/HCPCS: 45380; 88305; J2001; J2704